=== PATIENT | male | born 1940 | race Caucasian/White ===

== ENCOUNTER 2016-09-17 14:28 | Outpatient (CLI) | payer MEDICARE, OTHER | END 2016-09-17 14:29 | disposition home or self-care (01) | DX: I48.91 Unspecified atrial fibrillation (principal); Z79.01 Long term (current) use of anticoagulants ==

== ENCOUNTER 2016-10-16 15:12 | Outpatient (CLI) | payer MEDICARE, OTHER | END 2016-10-16 15:13 | disposition home or self-care (01) | DX: I48.91 Unspecified atrial fibrillation (principal); Z79.01 Long term (current) use of anticoagulants ==

== ENCOUNTER 2016-10-24 08:45 | Outpatient (CLI) | payer MEDICARE, OTHER | END 2016-10-24 08:46 | disposition home or self-care (01) | DX: I48.91 Unspecified atrial fibrillation (principal); C61 Malignant neoplasm of prostate; Z79.899 Other long term (current) drug therapy ==

== ENCOUNTER 2016-11-05 13:27 | Outpatient (CLI) | payer MEDICARE, OTHER | END 2016-11-05 13:28 | disposition home or self-care (01) | DX: I48.91 Unspecified atrial fibrillation (principal); Z79.01 Long term (current) use of anticoagulants ==

== ENCOUNTER 2016-12-30 13:25 | Outpatient (CLI) | payer MEDICARE, OTHER | END 2016-12-30 13:26 | disposition home or self-care (01) | DX: I48.91 Unspecified atrial fibrillation (principal); Z79.01 Long term (current) use of anticoagulants ==

== ENCOUNTER 2017-01-14 14:52 | Outpatient (CLI) | payer MEDICARE, OTHER | END 2017-01-14 14:53 | disposition home or self-care (01) | DX: I48.91 Unspecified atrial fibrillation (principal); Z79.01 Long term (current) use of anticoagulants ==

== ENCOUNTER 2017-02-04 10:50 | Outpatient (CLI) | payer MEDICARE, OTHER | END 2017-02-04 10:51 | disposition home or self-care (01) | LOC: LAB 10:50 | PROVIDERS: ATTEND Internal Medicine | DX: I48.91 Unspecified atrial fibrillation (principal) | CPT/HCPCS: 85610 ==

== ENCOUNTER 2017-03-17 15:31 | Outpatient (CLI) | payer MEDICARE, OTHER | END 2017-03-17 15:32 | disposition home or self-care (01) | LOC: LAB 15:31 | PROVIDERS: ATTEND Internal Medicine | DX: I48.91 Unspecified atrial fibrillation (principal) | CPT/HCPCS: 85610 ==

== ENCOUNTER 2017-04-04 14:38 | Outpatient (CLI) | payer MEDICARE, OTHER | END 2017-04-04 14:39 | disposition home or self-care (01) | LOC: LAB 14:38 | PROVIDERS: ATTEND Internal Medicine | DX: I48.91 Unspecified atrial fibrillation (principal) | CPT/HCPCS: 85610 ==

== ENCOUNTER 2017-06-17 14:34 | Outpatient (CLI) | payer MEDICARE, OTHER | END 2017-06-17 14:35 | disposition home or self-care (01) | LOC: LAB 14:34 | PROVIDERS: ATTEND Internal Medicine | DX: I48.91 Unspecified atrial fibrillation (principal); Z79.01 Long term (current) use of anticoagulants | CPT/HCPCS: 85610 ==

== ENCOUNTER 2017-07-14 10:29 | Outpatient (CLI) | payer MEDICARE, OTHER | END 2017-07-14 10:30 | disposition home or self-care (01) | LOC: LAB 10:29 | PROVIDERS: ATTEND Internal Medicine | DX: Z53.9 Procedure and treatment not carried out, unspecified reason (principal) ==

== ENCOUNTER 2017-07-14 13:49 | Outpatient (CLI) | payer MEDICARE, OTHER | END 2017-07-14 13:50 | disposition home or self-care (01) | LOC: LAB 13:49 | PROVIDERS: ATTEND Internal Medicine | DX: I48.91 Unspecified atrial fibrillation (principal); Z79.01 Long term (current) use of anticoagulants | CPT/HCPCS: 85610 ==

== ENCOUNTER 2017-08-11 15:32 | Outpatient (CLI) | payer MEDICARE, OTHER | END 2017-08-11 15:33 | disposition home or self-care (01) | LOC: LAB 15:32 | PROVIDERS: ATTEND Internal Medicine | DX: I48.91 Unspecified atrial fibrillation (principal); Z79.01 Long term (current) use of anticoagulants | CPT/HCPCS: 85610 ==

== ENCOUNTER 2017-08-27 14:33 | Outpatient (CLI) | payer MEDICARE, OTHER | END 2017-08-27 14:34 | disposition home or self-care (01) | LOC: LAB 14:33 | PROVIDERS: ATTEND Internal Medicine | DX: I48.91 Unspecified atrial fibrillation (principal); Z79.01 Long term (current) use of anticoagulants | CPT/HCPCS: 85610 ==

== ENCOUNTER 2017-09-11 14:37 | Outpatient (CLI) | payer MEDICARE, OTHER | END 2017-09-11 14:38 | disposition home or self-care (01) | LOC: LAB 14:37 | PROVIDERS: ATTEND Internal Medicine | DX: I48.91 Unspecified atrial fibrillation (principal); Z79.01 Long term (current) use of anticoagulants | CPT/HCPCS: 85610 ==

== ENCOUNTER 2017-09-25 14:07 | Outpatient (CLI) | payer MEDICARE, OTHER | END 2017-09-25 14:08 | disposition home or self-care (01) | LOC: LAB 14:07 | PROVIDERS: ATTEND Internal Medicine | DX: I48.91 Unspecified atrial fibrillation (principal); Z79.01 Long term (current) use of anticoagulants | CPT/HCPCS: 85610 ==

== ENCOUNTER 2017-10-06 13:41 | Outpatient (CLI) | payer MEDICARE, OTHER | END 2017-10-06 13:42 | disposition home or self-care (01) | LOC: LAB 13:41 | PROVIDERS: ATTEND Internal Medicine | DX: I48.91 Unspecified atrial fibrillation (principal); Z79.01 Long term (current) use of anticoagulants | CPT/HCPCS: 85610 ==

== ENCOUNTER 2017-10-27 14:07 | Outpatient (CLI) | payer MEDICARE, OTHER | END 2017-10-27 14:08 | disposition home or self-care (01) | LOC: LAB 14:07 | PROVIDERS: ATTEND Internal Medicine | DX: I48.91 Unspecified atrial fibrillation (principal); Z79.01 Long term (current) use of anticoagulants | CPT/HCPCS: 85610 ==

== ENCOUNTER 2017-11-03 07:29 | Outpatient (CLI) | payer MEDICARE, OTHER ==
[2017-11-03 08:26] LABS: BASOPHILS % (AUTO) 0.7 %; EOSINOPHILS # (AUTO) 0.2 10^3/uL (0.0-0.7); EOSINOPHILS % (AUTO) 2.6 %; HGB - HEMOGLOBIN 14.2 g/dL (14.0-18.0); LYMPHOCYTES # (AUTO) 1.5 10^3/uL (1.5-3.5); LYMPHOCYTES % (AUTO) 21.6 %; MEAN CORPUSCULAR HEMOGLOBIN 30.4 pg (27.0-31.0); MEAN CORPUSCULAR HGB CONC 32.9 g/dL (32.0-36.0); MEAN CORPUSCULAR VOLUME 92.4 fL (80.0-94.0); MEAN PLATELET VOLUME 8.7 fL (7.4-11.4); MONOCYTES # (AUTO) 0.6 10^3/uL (0.0-1.0); MONOCYTES % (AUTO) 8.7 %; NEUTROPHILS # (AUTO) 4.7 10^3/uL (1.5-6.6); NEUTROPHILS % (AUTO) 66.4 %; PLT - PLATELET COUNT 222 10^3/uL (130-450); RED BLOOD COUNT 4.66 10^6/uL (4.70-6.10); RED CELL DISTRIBUTION WIDTH 14.2 % (12.0-15.0); WHITE BLOOD COUNT 7.1 x10^3/uL (4.8-10.8)
[2017-11-03 08:44] LABS: ALBUMIN 3.9 g/dL (3.2-5.5); ALBUMIN/GLOBULIN RATIO 1.1 (1.0-2.2); BILIRUBIN,TOTAL 0.5 mg/dL (0.2-1.0); CALCIUM 8.9 mg/dL (8.5-10.3); CREATININE 1.1 mg/dL (0.6-1.2); TOTAL PROTEIN 7.3 g/dL (6.7-8.2)
[2017-11-03 08:48] LABS: HB2 TOTAL 15.4 g/dL; HEMOGLOBIN A1C 0.75 g/dL; HEMOGLOBIN A1C % 6.6 % (4.6-6.2)
== END 2017-11-03 07:30 | disposition home or self-care (01) ==
LOC: LAB 07:29
PROVIDERS: ATTEND Internal Medicine
DX: R73.9 Hyperglycemia, unspecified (principal); D64.9 Anemia, unspecified; I11.0 Hypertensive heart disease with heart failure; I50.9 Heart failure, unspecified; I48.91 Unspecified atrial fibrillation
CPT/HCPCS: 36415; 80053; 83036; 85025

== ENCOUNTER 2017-11-17 14:54 | Outpatient (CLI) | payer MEDICARE, OTHER | END 2017-11-17 14:55 | disposition home or self-care (01) | LOC: LAB 14:54 | PROVIDERS: ATTEND Internal Medicine | DX: Z79.01 Long term (current) use of anticoagulants (principal); I48.91 Unspecified atrial fibrillation | CPT/HCPCS: 85610 ==

== ENCOUNTER 2017-12-03 14:39 | Outpatient (CLI) | payer MEDICARE, OTHER | END 2017-12-03 14:40 | disposition home or self-care (01) | LOC: LAB 14:39 | PROVIDERS: ATTEND Internal Medicine | DX: I48.91 Unspecified atrial fibrillation (principal); Z79.01 Long term (current) use of anticoagulants | CPT/HCPCS: 85610 ==

== ENCOUNTER 2017-12-20 14:30 | Outpatient (CLI) | payer MEDICARE, OTHER | END 2017-12-20 14:31 | disposition home or self-care (01) | LOC: LAB 14:30 | PROVIDERS: ATTEND Internal Medicine | DX: I48.91 Unspecified atrial fibrillation (principal); Z79.01 Long term (current) use of anticoagulants | CPT/HCPCS: 85610 ==

== ENCOUNTER 2018-01-05 13:43 | Outpatient (CLI) | payer MEDICARE, OTHER | END 2018-01-05 13:44 | disposition home or self-care (01) | LOC: LAB 13:43 | PROVIDERS: ATTEND Internal Medicine | DX: I48.91 Unspecified atrial fibrillation (principal); Z79.01 Long term (current) use of anticoagulants | CPT/HCPCS: 85610 ==

== ENCOUNTER 2018-01-19 10:09 | Outpatient (CLI) | payer MEDICARE, OTHER ==
[2018-01-19 10:31] LABS: INR 2.6 (0.8-1.2); PT - PROTHROMBIN TIME 28.7 secs (9.9-12.6)
== END 2018-01-19 10:10 | disposition home or self-care (01) ==
LOC: LAB 10:09
PROVIDERS: ATTEND Internal Medicine
DX: I48.91 Unspecified atrial fibrillation (principal); Z79.01 Long term (current) use of anticoagulants
CPT/HCPCS: 85610

== ENCOUNTER 2018-02-18 13:39 | Outpatient (CLI) | payer MEDICARE, OTHER | END 2018-02-18 13:40 | disposition home or self-care (01) | LOC: LAB 13:39 | PROVIDERS: ATTEND Internal Medicine | DX: I48.91 Unspecified atrial fibrillation (principal); Z79.01 Long term (current) use of anticoagulants | CPT/HCPCS: 85610 ==

== ENCOUNTER 2018-04-14 11:05 | Outpatient (CLI) | payer MEDICARE, OTHER ==
[2018-04-14 12:11] LABS: INR 2.3 (0.8-1.2)
== END 2018-04-14 11:06 | disposition home or self-care (01) ==
LOC: LAB 11:05
PROVIDERS: ATTEND Internal Medicine
DX: I48.91 Unspecified atrial fibrillation (principal); Z79.01 Long term (current) use of anticoagulants
CPT/HCPCS: 36415; 85610

== ENCOUNTER 2018-05-11 13:53 | Outpatient (CLI) | payer MEDICARE, OTHER | END 2018-05-11 13:54 | disposition home or self-care (01) | LOC: LAB 13:53 | PROVIDERS: ATTEND Internal Medicine | DX: I48.91 Unspecified atrial fibrillation (principal); Z79.01 Long term (current) use of anticoagulants | CPT/HCPCS: 85610 ==

== ENCOUNTER 2018-05-26 14:59 | Outpatient (CLI) | payer MEDICARE, OTHER | END 2018-05-26 15:00 | disposition home or self-care (01) | LOC: LAB 14:59 | PROVIDERS: ATTEND Internal Medicine | DX: I48.91 Unspecified atrial fibrillation (principal); Z79.01 Long term (current) use of anticoagulants | CPT/HCPCS: 85610 ==

== ENCOUNTER 2018-06-25 13:59 | Outpatient (CLI) | payer MEDICARE, OTHER | END 2018-06-25 14:00 | disposition home or self-care (01) | LOC: LAB 13:59 | PROVIDERS: ATTEND Internal Medicine | DX: I48.91 Unspecified atrial fibrillation (principal); Z79.01 Long term (current) use of anticoagulants | CPT/HCPCS: 85610 ==

== ENCOUNTER 2018-07-10 13:18 | Outpatient (CLI) | payer MEDICARE, OTHER ==
[2018-07-10 13:37] LABS: BASOPHILS # (AUTO) 0.1 10^3/uL (0.0-0.1); EOSINOPHILS # (AUTO) 0.2 10^3/uL (0.0-0.7); EOSINOPHILS % (AUTO) 2.4 %; HGB - HEMOGLOBIN 13.8 g/dL (14.0-18.0); LYMPHOCYTES # (AUTO) 1.4 10^3/uL (1.5-3.5); LYMPHOCYTES % (AUTO) 18.5 %; MEAN CORPUSCULAR HGB CONC 33.6 g/dL (32.0-36.0); MEAN CORPUSCULAR VOLUME 89.4 fL (80.0-94.0); MEAN PLATELET VOLUME 8.1 fL (7.4-11.4); MONOCYTES # (AUTO) 0.8 10^3/uL (0.0-1.0); MONOCYTES % (AUTO) 10.6 %; NEUTROPHILS # (AUTO) 4.9 10^3/uL (1.5-6.6); NEUTROPHILS % (AUTO) 67.5 %; PLT - PLATELET COUNT 210 10^3/uL (130-450); RED CELL DISTRIBUTION WIDTH 15.4 % (12.0-15.0); WHITE BLOOD COUNT 7.3 x10^3/uL (4.8-10.8)
[2018-07-10 13:42] LABS: INR 1.7 (0.8-1.2); PT - PROTHROMBIN TIME 18.9 secs (9.9-12.6)
[2018-07-10 13:52] LABS: ALBUMIN 4.1 g/dL (3.2-5.5); ALBUMIN/GLOBULIN RATIO 1.3 (1.0-2.2); BILIRUBIN,TOTAL 0.8 mg/dL (0.2-1.0); CALCIUM 9.4 mg/dL (8.5-10.3); CREATININE 0.9 mg/dL (0.6-1.2); TOTAL PROTEIN 7.2 g/dL (6.7-8.2)
[2018-07-10 14:27] LABS: HB2 TOTAL 14.7 g/dL; HEMOGLOBIN A1C 0.77 g/dL; HEMOGLOBIN A1C % 6.9 % (4.6-6.2)
[2018-07-10 19:19] LABS: BILIRUBIN,URINE NEGATIVE (NEGATIVE); GLUCOSE, URINE (UA) NEGATIVE (NEGATIVE); KETONES,URINE (UA) NEGATIVE (NEGATIVE); LEUKOCYTE ESTERASE, URINE NEGATIVE (NEGATIVE); NITRITE,URINE NEGATIVE (NEGATIVE); OCCULT BLOOD,URINE NEGATIVE (NEGATIVE); PROTEIN,URINE NEGATIVE (NEGATIVE); UROBILINOGEN,URINE 0.2 (NORMAL) E.U./dL (NORMAL)
[2018-07-10 19:26] LABS: CLARITY,URINE CLEAR (CLEAR)
[2018-07-10 19:27] LABS: BACTERIA,URINE Rare /HPF (None Seen); MUCUS,URINE Few Strands; RBC,URINE 0-5 /HPF (0-5); SQUAMOUS EPITHELIAL CELL,UR MANY Squamous (<= Few)
== END 2018-07-10 13:19 | disposition home or self-care (01) ==
LOC: LAB 13:18
PROVIDERS: ATTEND Internal Medicine
DX: R73.9 Hyperglycemia, unspecified (principal); R30.0 Dysuria; Z79.01 Long term (current) use of anticoagulants; D64.9 Anemia, unspecified; I50.9 Heart failure, unspecified; I48.91 Unspecified atrial fibrillation; F03.90 Unspecified dementia, unspecified severity, without behavioral disturbance, psychotic disturbance, mood disturbance, and anxiety
CPT/HCPCS: 36415; 80053; 81001; 83036; 85025; 85610; 87086

== ENCOUNTER 2018-07-21 12:46 | Outpatient (CLI) | payer MEDICARE, OTHER | END 2018-07-21 12:47 | disposition home or self-care (01) | LOC: LAB 12:46 | PROVIDERS: ATTEND Internal Medicine | DX: I48.91 Unspecified atrial fibrillation (principal); Z79.01 Long term (current) use of anticoagulants | CPT/HCPCS: 85610 ==

== ENCOUNTER 2018-08-11 14:57 | Outpatient (CLI) | payer MEDICARE, OTHER | END 2018-08-11 14:58 | disposition home or self-care (01) | LOC: LAB 14:57 | PROVIDERS: ATTEND Internal Medicine | DX: I48.91 Unspecified atrial fibrillation (principal); Z79.01 Long term (current) use of anticoagulants | CPT/HCPCS: 85610 ==

== ENCOUNTER 2018-08-17 13:45 | Outpatient (CLI) | payer MEDICARE, OTHER | END 2018-08-17 13:46 | disposition home or self-care (01) | LOC: LAB 13:45 | PROVIDERS: ATTEND Internal Medicine | DX: I48.91 Unspecified atrial fibrillation (principal); Z79.01 Long term (current) use of anticoagulants | CPT/HCPCS: 85610 ==

== ENCOUNTER 2018-09-10 15:19 | Outpatient (CLI) | payer MEDICARE, OTHER | END 2018-09-10 15:20 | disposition home or self-care (01) | LOC: LAB 15:19 | PROVIDERS: ATTEND Internal Medicine | DX: I48.91 Unspecified atrial fibrillation (principal); Z79.01 Long term (current) use of anticoagulants | CPT/HCPCS: 85610 ==

== ENCOUNTER 2018-10-13 10:39 | Outpatient (CLI) | payer MEDICARE, OTHER | END 2018-10-13 10:40 | disposition critical access hospital (66) | LOC: EMS 10:39 | PROVIDERS: ATTEND Surgery | DX: R53.1 Weakness (principal); W19.XXXA Unspecified fall, initial encounter; Y92.002 Bathroom of unspecified non-institutional (private) residence as the place of occurrence of the external cause | CPT/HCPCS: A0425; A0429 ==

== ENCOUNTER 2018-10-13 10:57 | Inpatient (IN) | payer MEDICARE, OTHER ==
--- NOTE | 2018-10-13 11:12 | ED Physician Documentation ---
History of Present Illness - Stated complaint Stated Complaint: FALL - Chief complaint Chief Complaint: General - History obtained from History obtained from: Patient, EMS - History of Present Illness Timing: Last night - Additonal information Additional information: 78-year-old male with a history of dementia has had a fall in his bathroom sometime in the middle of the night and he was noted to be on the floor the bathroom at least from 5 to 10:00 in the morning this morning. His did hear him snoring in the bathroom and later went in to find him face down in the bathroom. He was unable to get up and medics were called to the scene. He does have some pressure indications on both of his knees with erythema and he is confused at baseline but is able to converse. He denies any recent illness. Review of Systems Unable to obtain: Dementia, Other (negative ROS is confirmed by the patient's .) Constitutional: denies: Fever Eyes: denies: Decreased vision Ears: denies: Ear pain Nose: denies: Congestion Throat: denies: Sore throat Cardiac: denies: Chest pain / pressure, Palpitations Respiratory: denies: Dyspnea, Cough GI: denies: Abdominal Pain, Nausea, Vomiting : denies: Dysuria, Frequency PD PAST MEDICAL HISTORY - Past Medical History Cardiovascular: Congestive heart failure Respiratory: None Endocrine/Autoimmune: None GI: None : None HEENT: None Psych: None Musculoskeletal: None Derm: None - Past Surgical History Past Surgical History: Yes Ortho: Hip replacement - Present Medications Home Medications: Ambulatory Orders Medication Instructions Recorded Confirmed Metoprolol Tartrate 100 mg PO DAILY 10/01/16 07/21/18 Warfarin [Coumadin] 7.5 mg PO DAILY 10/01/16 07/21/18 Sertraline HCl [Zoloft] 100 mg ORAL DAILY 10/13/18 - Allergies Allergies/Adverse Reactions: Allergies Allergy/AdvReac Type Severity Reaction Status Date / Time adhesive Allergy Rash Verified 10/13/18 11:10 - Social History Does the pt smoke?: No Smoking Status: Never smoker Does the pt drink ETOH?: Yes Does the pt have substance abuse?: No - Immunizations Immunizations are current?: Yes - POLST Patient has POLST: No PD ED PE NORMAL - Vitals Vital signs reviewed: Yes (hypertensive ) - General General: No acute distress, Well developed/nourished, Other (confused and with delay in execution of motor commands ) - HEENT HEENT: Atraumatic, PERRL, EOMI, Other (dry mucous membranes ) - Neck Neck: Supple, no meningeal sign, No bony TTP - Cardiac Cardiac: No murmur, Other (irregularly irregular ) - Respiratory Respiratory: No respiratory distress, Clear bilaterally - Abdomen Abdomen: Soft, Non tender, Other (obese) - Back Back: No CVA TTP, No spinal TTP - Derm Derm: Normal color, Warm and dry, No rash - Extremities Extremities: No deformity, Other (trace edema bilaterally ) - Neuro Neuro: rock mason 2-12 intact, No motor deficit, No sensory deficit, Normal speech Eye Opening: Spontaneous Motor: Obeys Commands Verbal: Confused GCS Score: 14 - Psych Psych: Normal mood, Normal affect Results - Vitals Vitals: Vital Signs - 24 hr 10/13/18 10/13/18 11:02 13:08 Temperature 36.4 C L Heart Rate 71 57 L Respiratory 16 16 Rate Blood Pressure 136/101 H 119/74 O2 Saturation 97 96 Oxygen O2 Source Room air - EKG (time done) 1308 Rate: Rate (enter#) (110) Rhythm: Atrial fibrillation QRS: Poor R wave progression Ischemia: Q waves Compare to prior EKG: Old EKG unavailable Computer interpretation: Agree with computer - Labs Labs: Laboratory Tests 10/13/18 10/13/18 10/13/18 11:56 11:56 11:56 WBC 13.6 H RBC 4.45 L Hgb 13.4 L Hct 40.4 L MCV 90.6 MCH 30.0 MCHC 33.1 RDW 14.6 Plt Count 200 MPV 8.3 Neut # (Auto) 12.0 H Lymph # (Auto) 0.5 L [place] # (Auto) 1.0 Eos # (Auto) 0.0 Baso # (Auto) 0.0 Absolute Nucleated RBC 0.00 Nucleated RBC % 0.0 PT 21.4 H INR 1.9 H Sodium 137 Potassium 4.7 Chloride 101 Carbon Dioxide 25 Anion Gap 11.0 BUN 25 H Creatinine 1.2 Estimated GFR (MDRD) 58 L Glucose 178 H Lactic Acid Calcium 8.9 Total Bilirubin 1.0 AST 361 H ALT 87 H Alkaline Phosphatase 58 Total Creatine Kinase 83650 H* CK-MB (CK-2) Troponin I B-Natriuretic Peptide Total Protein 7.2 Albumin 3.7 Globulin 3.5 Albumin/Globulin Ratio 1.1 Lipase 27 10/13/18 10/13/18 10/13/18 11:56 11:56 11:56 WBC RBC Hgb Hct MCV MCH MCHC RDW Plt Count MPV Neut # (Auto) Lymph # (Auto) [place] # (Auto) Eos # (Auto) Baso # (Auto) Absolute Nucleated RBC Nucleated RBC % PT INR Sodium Potassium Chloride Carbon Dioxide Anion Gap BUN Creatinine Estimated GFR (MDRD) Glucose Lactic Acid 2.3 H Calcium Total Bilirubin AST ALT Alkaline Phosphatase Total Creatine Kinase CK-MB (CK-2) 271.0 H Troponin I 9.28 H* B-Natriuretic Peptide 472 H Total Protein Albumin Globulin Albumin/Globulin Ratio Lipase - Rads (name of study) CT head without Radiology: Prelim report reviewed (Impression: No acute intracranial abnormality.), EMP read indepedently, See rad report Procedures - IVC sono (time) 1107 Bedside IVC sono: IVC measures (cm) (1.5), IVC collapsed c insp (cm) (complete), Dehydration (minimal est <500ml) PD MEDICAL DECISION MAKING - ED course Complexity details: reviewed old records (f), reviewed results, re-evaluated patient, considered differential, d/w patient ED course: 78-year-old male with advanced dementia has collapsed in his bathroom sometime last night between the hours of 8:30 PM and 5 AM. He was on the ground for an extended period of time as evidenced by his elevated CPK and in addition he has elevated troponin. I discussed the case with the patient's and she indicates that transfer to another facility with a boat designer is not desired. She would like the patient admitted here for care. Departure - Departure Disposition: 66 [facility] DC/Xfer Clinical Impression: NSTEMI (non-ST elevated myocardial infarction) Rhabdomyolysis Qualifiers: Rhabdomyolysis type: traumatic Encounter type: initial encounter Qualified Code(s): T79.6XXA - Traumatic ischemia of muscle, initial encounter Condition: Fair
--- NOTE | 2018-10-13 12:00 | CT Report ---
Reason: fall coumadin confusion Procedure Date: 10/13/2018 Accession Number: [id number] / [id number] Procedure: CT - Head W/O CPT Code: FULL RESULT: EXAM: CT HEAD EXAM DATE: 10/13/2018 11:36 AM. CLINICAL HISTORY: Fall, Coumadin, confusion. COMPARISON: HEAD W/O 08/12/2013 10:11 AM. TECHNIQUE: Multiaxial CT images were obtained from the foramen magnum to the vertex. Reformats: Sagittal and coronal. IV contrast: None. In accordance with CT protocol optimization, one or more of the following dose reduction techniques were utilized for this exam: automated exposure control, adjustment of mA and/or KV based on patient size, or use of iterative reconstructive technique. FINDINGS: Parenchyma: No intraparenchymal hemorrhage. No evidence of mass, midline shift. Seymour-white differentiation is distinct. Extraaxial Spaces: Normal for age. No subdural or epidural collections identified. Ventricles: Normal in size and position. Sinuses and Orbits: Imaged paranasal sinuses, orbits, and mastoids show no significant abnormality. Bones: No evidence of fracture or calvarial defect. Other: None. IMPRESSION: No acute intracranial abnormality. RADIA
[2018-10-13 12:07] LABS: BASOPHILS % (AUTO) 0.1 %; HGB - HEMOGLOBIN 13.4 g/dL (14.0-18.0); LYMPHOCYTES # (AUTO) 0.5 10^3/uL (1.5-3.5); LYMPHOCYTES % (AUTO) 3.8 %; MEAN CORPUSCULAR HGB CONC 33.1 g/dL (32.0-36.0); MEAN CORPUSCULAR VOLUME 90.6 fL (80.0-94.0); MEAN PLATELET VOLUME 8.3 fL (7.4-11.4); MONOCYTES % (AUTO) 7.3 %; NEUTROPHILS % (AUTO) 88.8 %; PLT - PLATELET COUNT 200 10^3/uL (130-450); RED BLOOD COUNT 4.45 10^6/uL (4.70-6.10); RED CELL DISTRIBUTION WIDTH 14.6 % (12.0-15.0); WHITE BLOOD COUNT 13.6 x10^3/uL (4.8-10.8)
[2018-10-13 12:22] LABS: INR 1.9 (0.8-1.2); PT - PROTHROMBIN TIME 21.4 secs (9.9-12.6)
[2018-10-13 12:25] LABS: TROPONIN I 9.28 ng/mL (<0.49)
[2018-10-13 12:39] LABS: ALBUMIN 3.7 g/dL (3.2-5.5); ALBUMIN/GLOBULIN RATIO 1.1 (1.0-2.2); CALCIUM 8.9 mg/dL (8.5-10.3); CREATININE 1.2 mg/dL (0.6-1.2); TOTAL PROTEIN 7.2 g/dL (6.7-8.2)
[2018-10-13] MEDS ORDERED: SODIUM CHLORIDE 0.9% 1,000 ML IV ONE (13:01)
[2018-10-13] MEDS ORDERED: SODIUM CHLORIDE FLUSH 0.9% 10 ML SYRINGE IVP PRN (13:46)
--- NOTE | 2018-10-13 14:10 | XRAY Report ---
Reason: chest pain Procedure Date: 10/13/2018 Accession Number: [id number] / [id number] Procedure: XR - Chest 1 View X-Ray CPT Code: 54098 FULL RESULT: EXAM: CHEST RADIOGRAPHY EXAM DATE: 10/13/2018 01:43 PM. CLINICAL HISTORY: Chest pain. COMPARISON: None. TECHNIQUE: 1 view. FINDINGS: Examination is limited by semiupright single view portable AP technique. Lungs/Pleura: The aerated left upper lung and right lung are clear with a trace amount of fluid seen in the horizontal fissure. There is no large pleural effusion or pneumothorax. Mediastinum: Cardiomegaly with opacification of the lower portion of the left lung. Other: None. IMPRESSION: Limited evaluation with cardiomegaly. RADIA
--- NOTE | 2018-10-13 14:22 | HISTORY & PHYSICAL EXAMINATION ---
Chief Complaint - Chief Complaint Chief Complaint: found down History of Present Illness - Admitted From Admitted From:: ED - History Obtained From Records Reviewed: yes History obtained from: chart review, patient's Exam Limitations: AMS, dementia - History of Present Illness HPI Comment/Other: Edmar Elliott is a 78-year old male with a past medical history of Alzheimer's dementia, falls, atrial fibrillation on coumadin, CHF, obesity, RICHARD and depression. He is very confused on admission, so his , Magalis answered all questions asked for this H & P document. He sleeps in his own room at home and when Magalis checked on him this morning, she called to him and he replied, "I am just fine in here". Within one hour after that, she went into his room, and found him wedged between the wall and toilet in the bathroom. He was not able to be dislodged even after Magalis had a few male neighbors come to assist. EMS came and the patient was estimated to have been on the floor any where from 8-10 hours. After arriving in the ED imaging of his head and chest were normal, an IVC measurement showed a 1.5L deficit. Labs showed an elevated troponin of 9.48[place] [address], a BNP of 472, an elevated lactic acid of 2.3, an INR of 1.9, an elevated WBC count of 13.6, a low H/H of 13.4/40.4, elevated LFTs, and no other lab abnormalities. On exam, he was agitated, could not follow commands, was disorientated, and was not able to elaborate on his history. His Magalis states that she does not believe he has been sick lately, has not had a new cough, rashes, or other complaints. She does admit that he has been more confused lately, has had more falls, and has had more of a sudden decline. He will be admitted to inpatient. History - Past Medical History Cardiovascular: reports: Congestive heart failure, Hypertension, Peripheral Vascular Disease, Atrial flutter, Murmur, Arrhythmia Respiratory: reports: Asthma, Sleep apnea Neuro: reports: Alzhiemer's, Dementia, Peripheral neuropathy Endocrine/Autoimmune: reports: None GI: reports: GERD : reports: Benign prostate hypertrophy, Nocturia, Frequency HEENT: reports: Chronic vision loss, Chronic hearing loss Psych: reports: Depression Musculoskeletal: reports: Osteoarthritis, Fatigue Derm: reports: None MRSA Hx?: No - Past Surgical History Ortho: reports: Hip replacement - Family & Social History Family History: Mother: , Alzheimer's Disease, Father: , Cancer, Sister: , Brother: Family History Comment/Other: His mother had Alzheimer's disease, his father had prostate CA, his brother had lung CA and his sister has been astranged with an unknown medical history. Living arrangement: At home Living Situation: With spouse/s.o. 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 He was born in [facility], met his of 53 years, and had 2 children. He still lives at home with his , Magalis but has been home bound lately since it is too difficult for Magalis to move him physically. His denies tobacco abuse, alcoholism, or substance abuse. He has a POLST on file that states DNR. - Substance History Use: Uses substance without health or social issues: NONE Abuse: Recurrent use of substance despite neg consequences: NONE Dependence: Experiences withdrawal or developed tolerances: NONE - POLST Patient has POLST: Yes POLST Status: DNR Meds/Allgy - Home Medications Home Medications: Ambulatory Orders Medication Instructions Recorded Confirmed Warfarin [Coumadin] 5 - 7.5 mg PO DAILY 10/01/16 10/13/18 Metoprolol Succinate 100 mg PO DAILY 10/13/18 10/13/18 Sertraline HCl [Zoloft] 100 mg ORAL DAILY 10/13/18 10/13/18 - Allergies Allergies/Adverse Reactions: Allergies Allergy/AdvReac Type Severity Reaction Status Date / Time adhesive Allergy Rash Verified 10/13/18 11:10 Review of Systems - Constitutional Constitutional: reports: Fatigue, Weakness, Poor appetite - Eyes Eyes: reports: Vision loss - Ears, Nose & Throat Ears, Nose & Throat: reports: Hearing loss, Postnasal drainage - Respiratory Respiratory: reports: Cough - Gastrointestinal Gastrointestinal: reports: Abdominal distention, Reflux/heartburn - Genitourinary Genitourinary: reports: Dysuria, Frequency, Nocturia - Musculoskeletal Musculoskeletal: reports: Limited range of motion, Muscle weakness, Joint swe lling - Integumentary Integumentary: reports: Dryness, Pigment changes - Neurological Neurological: reports: General weakness, Memory problems, Pre-existing deficit, Abnormal gait, Incoordination - Hematologic/Lymphatic Hematologic/Lymphatic: reports: Anemia, Recurrent infections - All Other Systems All Other Systems: reports: Reviewed and negative Prior Level of Functionality: Progressive weakness, more frequent falls, was using a 4-wheeled walker with less walking lately. Exam - Vital Signs Reviewed Vital Signs: Yes Vital Signs: Vital Signs x48h Temp Pulse Resp BP Pulse Ox 10/13/18 14:11 105 H 20 167/86 H 99 10/13/18 13:08 57 L 16 119/74 96 10/13/18 11:02 36.4 C L 71 16 136/101 H 97 - Physical Exam General Appearance: positive: Alert, Mild distress, Lethargic Eyes Bilateral: positive: PERRL ENT: positive: Pharynx nml, Dry mucous membranes Neck: positive: No JVD, Trachea midline Respiratory: positive: Chest non-tender, Rhonchi Cardiovascular: positive: No gallop, Irregularly irregular, Systolic murmur Peripheral Pulses: positive: 1+ Abdomen: positive: Non-tender, Nml bowel sounds, Hepatomegaly, Other (obese, soft) Back: positive: Nml inspection Skin: positive: No rash, Warm, Dry Extremities: positive: Non-tender, Pedal edema, Joint swelling. negative: Nml appearance (chronic discoloration BLEs) Neurologic/Psychiatric: positive: Disoriented to place, Disoriented to time, Weakness, Sensory loss, Depressed mood/affect Reflexes: Bicep (R): 2+, Bicep (L): 2+ Sepsis Event Note (H) - Evaluation Current Stage of Sepsis: Ruled out Conclusion/Plan - Problem List (1) Rhabdomyolysis Conclusion/Plan: The patient had an elevated total creatine kinase of 16,820, which matches the story from the as he is suspected as lying on the floor for 8-10 hours overnight. Plan: Generous NS IV @ 250ml /hour. Re-check CK. Qualifiers: Rhabdomyolysis type: traumatic Encounter type: initial encounter Qualified Code(s): T79.6XXA - Traumatic ischemia of muscle, initial encounter (2) NSTEMI (non-ST elevated myocardial infarction) Conclusion/Plan: The patient's states that he had never had a heart attack previously and has a history of hypertension and atrial fibrillation. I suspect the elevated troponin of 9.28 was caused by the stress of his fall on his cardiovascular system, exacerbated by hypoxia from hypoventilation. EKG shows atrial fibrillation without ST elevation. Plan: continue with serial troponins, obtain a new EKG in the AM. (3) Fall Conclusion/Plan: The patient's states that he has been falling more in the past few weeks and is able to get on his hands and knees, then use his arms to pull himself back to a standing position. She does not believe this is due to syncope in which he looses consciousness, rather, his legs just give out. Plan: PT prior to discharge. Qualifiers: Encounter type: subsequent encounter Qualified Code(s): W19.XXXD - Unspecified fall, subsequent encounter (4) Alzheimer's dementia with behavioral disturbance Conclusion/Plan: The patient's , Magalis states that he was diagnosed about 10 years ago, but in the past 1 month there has been a noticeable difference in his behavior. Luckily, she believes that he can still recognize her each day. He has been acting strange while eating, when previously he was a great eater in which he holds food in his mouth for a prolonged time before swallowing. She states it is like he forgets what he was doing, which is not his character. She states that he has had more falls and his gait is shuffled lately. She denies any coughing noticed after swallowing. Plan: Continue to treat acute illness, Palliative care ordered. Qualifiers: Alzheimer's disease onset: early-onset Qualified Code(s): G30.0 - Alzheimer's disease with early onset; F02.81 - Dementia in other diseases classified elsewhere with behavioral disturbance (5) Obesity (BMI 30-39.9) Conclusion/Plan: The patient has been overweight for several years and has been falling lately. He consequently has RICHARD, but this is not officially diagnosed with a sleep study. His states he is a very loud snorer, and she has to sleep in a different room. He appears to have a very large neck circumference, although I have not measured it. Plan: Continue care, fall precautions. (6) Chronic atrial fibrillation Conclusion/Plan: The patient has had a-fib for greater than 10 years and is rate controlled with metoprolol, on warfarin for his atrial fib. His INR was sub-therapeutic at 1.9. His is agreeable to taking him off the anticoagulation due to the risk- benefit ratio of his falls making at risk for bleeding. Plan: Continue care, await echo, obtain EKG in the AM. Continue metoprolol, ASA. 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 Plan: Stop Warfarin, start ASA in the AM. (8) Essential hypertension Conclusion/Plan: The patient is prescribed metoprolol at home, which has been continued here. On admission his B/Ps have been elevated at 136/101. Plan: Continue meds, monitor B/P for hypotension with his NSTEMI. (9) Major depressive disorder Conclusion/Plan: The patient is prescribed sertraline at home that may be continued here. Plan: Continue med. Qualifiers: Major depression recurrence: recurrent Major depression episode severity: moderate - Lab Results Lab results reviewed: Yes Fish Bones: 10/14/18 05:10 10/14/18 05:10 - Diagnostic Imaging Results Diagnostic Imaging Results: positive: Final report reviewed Diagnostic Imaging Results Comments: EXAM: CHEST RADIOGRAPHY EXAM DATE: 10/13/2018 01:43 PM IMPRESSION: Limited evaluation with cardiomegaly. EXAM: CT HEAD EXAM DATE: 10/13/2018 11:36 AM IMPRESSION: No acute intracranial abnormality. - EKG Results EKG Interpreted Independently: Yes EKG Comparison: No prior EKG EKG Findings: A-fib without elevated ST. Core Measures - Anticipated LOS I expect patient to be DC'd or transferred within 96 hours.: Yes - DVT/VTE - Prophylaxis VTE/DVT Device ordered at admit?: Yes VTE/DVT Prophylaxis med ordered at admit?: Yes - Stroke - Rehab Assessment Rehab services assessment to be ordered?: Yes - AMI - Statin at Admit Aspirin Prescribed on Admit: Yes
[2018-10-13] MEDS ORDERED: LIDOCAINE 2% URO-JET 5 ML SYRINGE UR PRN (15:40)
[2018-10-13] MEDS: SODIUM CHLORIDE 0.9% 1,000 ML IV SCH ×3 (15:59→22:25)
[2018-10-13 17:02] LABS: GLUCOSE, URINE (UA) NEGATIVE (NEGATIVE); KETONES,URINE (UA) NEGATIVE (NEGATIVE); LEUKOCYTE ESTERASE, URINE NEGATIVE (NEGATIVE); OCCULT BLOOD,URINE LARGE (NEGATIVE); PH,URINE 6.5 PH (5.0-7.5); UROBILINOGEN,URINE 0.2 (NORMAL) E.U./dL (NORMAL)
[2018-10-13 17:17] LABS: BILIRUBIN,URINE NEGATIVE (NEGATIVE); CLARITY,URINE CLOUDY (CLEAR); ICTOTEST,URINE NEGATIVE
[2018-10-13 17:33] LABS: NITRITE,URINE POSITIVE (NEGATIVE); PROTEIN,URINE 100 mg/dL (NEGATIVE)
[2018-10-13 17:38] LABS: RBC,URINE 0-5 /HPF (0-5); SQUAMOUS EPITHELIAL CELL,UR RARE Squamous (<= Few)
[2018-10-13 17:39] LABS: AMORPHOUS SEDIMENT,UR Few /LPF; BACTERIA,URINE None Seen /HPF (None Seen); CASTS, URINE 3-5 Fine Granular /LPF; MUCUS,URINE Few Strands
[2018-10-13] MEDS: SODIUM CHLORIDE FLUSH 0.9% 10 ML SYRINGE IVP SCH ×2 (18:22→23:41)
[2018-10-13] MEDS: ENOXAPARIN 40 MG/0.4 ML SYRINGE SUBQ SCH (18:23)
[2018-10-13] MEDS: OLANZapine ODT 5 MG TABLET TL SCH (20:24)
[2018-10-14] MEDS ORDERED: ACETAMINOPHEN 325 MG TABLET PO PRN (00:29)
[2018-10-14] MEDS: SODIUM CHLORIDE 0.9% 1,000 ML IV SCH ×5 (03:15→21:27)
[2018-10-14 05:31] LABS: BASOPHILS # (AUTO) 0.1 10^3/uL (0.0-0.1); BASOPHILS % (AUTO) 0.9 %; EOSINOPHILS % (AUTO) 0.4 %; HGB - HEMOGLOBIN 12.4 g/dL (14.0-18.0); LYMPHOCYTES % (AUTO) 11.4 %; MEAN CORPUSCULAR HEMOGLOBIN 30.9 pg (27.0-31.0); MEAN CORPUSCULAR HGB CONC 33.5 g/dL (32.0-36.0); MEAN CORPUSCULAR VOLUME 92.2 fL (80.0-94.0); MEAN PLATELET VOLUME 8.5 fL (7.4-11.4); MONOCYTES # (AUTO) 0.9 10^3/uL (0.0-1.0); NEUTROPHILS # (AUTO) 6.9 10^3/uL (1.5-6.6); NEUTROPHILS % (AUTO) 77.3 %; PLT - PLATELET COUNT 168 10^3/uL (130-450); RED CELL DISTRIBUTION WIDTH 14.3 % (12.0-15.0); WHITE BLOOD COUNT 8.9 x10^3/uL (4.8-10.8)
[2018-10-14 05:39] LABS: CALCIUM 8.2 mg/dL (8.5-10.3)
[2018-10-14] MEDS: ENOXAPARIN 40 MG/0.4 ML SYRINGE SUBQ SCH (08:55)
[2018-10-14] MEDS: ASPIRIN 325 MG TABLET PO SCH (08:55)
[2018-10-14] MEDS: OLANZapine ODT 5 MG TABLET TL SCH (08:55)
[2018-10-14] MEDS: SODIUM CHLORIDE FLUSH 0.9% 10 ML SYRINGE IVP SCH ×2 (08:56→15:43)
[2018-10-14] MEDS: POLYETHYLENE GLYCOL 3350 17 GM PACKET PO SCH (08:56)
[2018-10-14] MEDS ORDERED: METOPROLOL SUCCINATE 50 MG TABLET PO SCH (09:00)
[2018-10-14] MEDS: cefTRIAXone 2 GM in SODIUM CHLORIDE 0.9% MINIBAG 100 ML IV SCH (13:07)
--- NOTE | 2018-10-14 14:56 | PROVIDER PROGRESS NOTE ---
Subjective - Prog Note Date Prog Note Date: 10/14/18 Prog Note Time: 09:00 - Subjective Pt reports feeling: No change Subjective: Edmar remains non-interactive, but is pleasant. His and daughter came for a visit later this evening and attest to him remaining profoundly confused and worry about his work of breathing. He appears mildly agitated on exam. They plan to meet with Margareth Stuart at 0930 AM tomorrow to speak about goals of care. Current Medications - Current Medications Current Medications: Active Medications: Acetaminophen (Tylenol) 650 mg PO Q4HR PRN Aspirin (Mir) 325 mg PO DAILYWM LIANET Enoxaparin Sodium (Lovenox) 40 mg SUBQ DAILY LIANET Lovenox 120mg x1 SQ for acute NC on 10/14/18 Ceftriaxone Sodium 2 gm/ (Sodium Chloride) 100 mls @ 200 mls/hr IV DAILY LIANET Sodium Chloride (Normal Saline 0.9%) 1,000 mls @ 100 mls/hr IV .Q10H LIANET Isosorbide Mononitrate (Imdur) 30 mg PO DAILY LIANET Levalbuterol HCl (Xopenex) 1.25 mg INH Q4H PRN Levalbuterol HCl (Xopenex) 1.25 mg INH Q6H LIANET Lidocaine HCl (Xylocaine Uro-Jet 2%) 2.5 ml UR Q6H PRN Metoprolol Succinate (Toprol Xl) 75 mg PO BIDWM LIANET Morphine Sulfate (Morphine (Carpuject)) 2 mg IVP Q2HR PRN Olanzapine (Zyprexa Odt) 5 mg TL DAILY LIANET Oxymetazoline HCl (Afrin) 2 sprays LOIS BID LIANET Polyethylene Glycol (Miralax) 17 gm PO DAILY [facility] meds: Warfarin [Coumadin] 5 - 7.5 mg PO DAILY 10/01/16 Metoprolol Succinate 100 mg PO DAILY 10/13/18 Sertraline HCl [Zoloft] 100 mg ORAL DAILY 10/13/18 Objective - Vital Signs/Intake & Output Reviewed Vital Signs: Yes Vital Signs: Vital Signs x48h Temp Pulse Resp BP Pulse Ox 10/14/18 07:47 36.9 C 94 20 104/64 96 Intake & Output: Intake & Output 10/11/18 10/12/18 10/13/18 10/14/18 23:59 23:59 23:59 23:59 Intake Total 3367.838 7192 Output Total 648 975 Balance 1088.607 2664 - Objective General Appearance: positive: No acute distress, Alert, Lethargic Eyes Bilateral: positive: PERRL ENT: positive: Pharynx nml, Dry mucous membranes Neck: positive: Thyroid nml, No JVD Respiratory: positive: Chest non-tender, Wheezes, Rhonchi Cardiovascular: positive: No murmur, Irregularly irregular, Tachycardia, Systolic murmur, Decreased pulse(s) Peripheral Pulses: 1+ Radial (R), 1+ Radial (L) Abdomen: positive: Non-tender, Nml bowel sounds, Other (firm, obese) Back: positive: Nml inspection Skin: positive: No rash, Warm, Dry, Pallor Extremities: positive: Non-tender, Pedal edema (trace, BLEs, discoloration), Joint swelling Neurologic/Psychiatric: positive: Disoriented to place, Disoriented to time, Weakness, Sensory loss, Slurred/abnml speech, Depressed mood/affect, Other (baseline advanced dementia) Reflexes: Bicep (R): 2+, Bicep (L): 2+ - Lab Results Fish Bones: 10/14/18 05:10 10/14/18 05:10 Other Labs: Lab Results x24hrs 10/14/18 10/14/18 10/14/18 Range/Units 08:56 08:56 05:10 WBC (4.8-10.8) x10^3/uL RBC (4.70-6.10) 10^6/uL Hgb (14.0-18.0) g/dL Hct (42.0-52.0) % MCV (80.0-94.0) fL MCH (27.0-31.0) pg MCHC (32.0-36.0) g/dL RDW (12.0-15.0) % Plt Count (130-450) 10^3/uL MPV (7.4-11.4) fL Neut # (Auto) (1.5-6.6) 10^3/uL Lymph # (Auto) (1.5-3.5) 10^3/uL [place] # (Auto) (0.0-1.0) 10^3/uL Eos # (Auto) (0.0-0.7) 10^3/uL Baso # (Auto) (0.0-0.1) 10^3/uL Absolute Nucleated RBC x10^3/uL Nucleated RBC % /100WBC Sodium 140 (135-145) mmol/L Potassium 4.0 (3.5-5.0) mmol/L Chloride 110 (101-111) mmol/L Carbon Dioxide 23 (21-32) mmol/L Anion Gap 7.0 (6-13) BUN 22 H (6-20) mg/dL Creatinine 1.0 (0.6-1.2) mg/dL Estimated GFR (MDRD) 72 L (>89) Glucose 150 H (70-100) mg/dL Lactic Acid (0.5-2.2) mmol/L Calcium 8.2 L (8.5-10.3) mg/dL Total Creatine Kinase 04969 H* (22-269) IU/L Troponin I 13.80 H* (<0.49) ng/mL Urine Color Urine Clarity (CLEAR) Urine pH (5.0-7.5) PH Ur Specific Rudolph (1.002-1.030) Urine Protein (NEGATIVE) mg/dL Urine Glucose (UA) (NEGATIVE) mg/dL Urine Ketones (NEGATIVE) mg/dL Urine Occult Blood (NEGATIVE) Urine Nitrite (NEGATIVE) Urine Bilirubin (NEGATIVE) Urine Urobilinogen (NORMAL) E.U./dL Ur Leukocyte Esterase (NEGATIVE) Urine RBC (0-5) /HPF Urine WBC (0-3) /HPF Ur Squamous Epith Cells (<= Few) Amorphous Sediment /LPF Urine Bacteria (None Seen) /HPF Urine Casts /LPF Urine Mucus Ur Microscopic Review Urine Culture Comments 10/14/18 10/14/18 10/13/18 Range/Units 05:10 01:50 20:05 WBC 8.9 (4.8-10.8) x10^3/uL RBC 4.00 L (4.70-6.10) 10^6/uL Hgb 12.4 L (14.0-18.0) g/dL Hct 36.9 L (42.0-52.0) % MCV 92.2 (80.0-94.0) fL MCH 30.9 (27.0-31.0) pg MCHC 33.5 (32.0-36.0) g/dL RDW 14.3 (12.0-15.0) % Plt Count 168 (130-450) 10^3/uL MPV 8.5 (7.4-11.4) fL Neut # (Auto) 6.9 H (1.5-6.6) 10^3/uL Lymph # (Auto) 1.0 L (1.5-3.5) 10^3/uL [place] # (Auto) 0.9 (0.0-1.0) 10^3/uL Eos # (Auto) 0.0 (0.0-0.7) 10^3/uL Baso # (Auto) 0.1 (0.0-0.1) 10^3/uL Absolute Nucleated RBC 0.01 x10^3/uL Nucleated RBC % 0.1 /100WBC Sodium (135-145) mmol/L Potassium (3.5-5.0) mmol/L Chloride (101-111) mmol/L Carbon Dioxide (21-32) mmol/L Anion Gap (6-13) BUN (6-20) mg/dL Creatinine (0.6-1.2) mg/dL Estimated GFR (MDRD) (>89) Glucose (70-100) mg/dL Lactic Acid 1.6 (0.5-2.2) mmol/L Calcium (8.5-10.3) mg/dL Total Creatine Kinase (22-269) IU/L Troponin I 19.88 H* (<0.49) ng/mL Urine Color Urine Clarity (CLEAR) Urine pH (5.0-7.5) PH Ur Specific Rudolph (1.002-1.030) Urine Protein (NEGATIVE) mg/dL Urine Glucose (UA) (NEGATIVE) mg/dL Urine Ketones (NEGATIVE) mg/dL Urine Occult Blood (NEGATIVE) Urine Nitrite (NEGATIVE) Urine Bilirubin (NEGATIVE) Urine Urobilinogen (NORMAL) E.U./dL Ur Leukocyte Esterase (NEGATIVE) Urine RBC (0-5) /HPF Urine WBC (0-3) /HPF Ur Squamous Epith Cells (<= Few) Amorphous Sediment /LPF Urine Bacteria (None Seen) /HPF Urine Casts /LPF Urine Mucus Ur Microscopic Review Urine Culture Comments 01/29/19 01/29/19 Range/Units 20:05 16:44 WBC (4.8-10.8) x10^3/uL RBC (4.70-6.10) 10^6/uL Hgb (14.0-18.0) g/dL Hct (42.0-52.0) % MCV (80.0-94.0) fL MCH (27.0-31.0) pg MCHC (32.0-36.0) g/dL RDW (12.0-15.0) % Plt Count (130-450) 10^3/uL MPV (7.4-11.4) fL Neut # (Auto) (1.5-6.6) 10^3/uL Lymph # (Auto) (1.5-3.5) 10^3/uL [place] # (Auto) (0.0-1.0) 10^3/uL Eos # (Auto) (0.0-0.7) 10^3/uL Baso # (Auto) (0.0-0.1) 10^3/uL Absolute Nucleated RBC x10^3/uL Nucleated RBC % /100WBC Sodium (135-145) mmol/L Potassium (3.5-5.0) mmol/L Chloride (101-111) mmol/L Carbon Dioxide (21-32) mmol/L Anion Gap (6-13) BUN (6-20) mg/dL Creatinine (0.6-1.2) mg/dL Estimated GFR (MDRD) (>89) Glucose (70-100) mg/dL Lactic Acid (0.5-2.2) mmol/L Calcium (8.5-10.3) mg/dL Total Creatine Kinase (22-269) IU/L Troponin I 21.98 H* (<0.49) ng/mL Urine Color BROWN Urine Clarity CLOUDY (CLEAR) Urine pH 6.5 (5.0-7.5) PH Ur Specific Rudolph >=1.030 H (1.002-1.030) Urine Protein 100 H (NEGATIVE) mg/dL Urine Glucose (UA) NEGATIVE (NEGATIVE) mg/dL Urine Ketones NEGATIVE (NEGATIVE) mg/dL Urine Occult Blood LARGE H (NEGATIVE) Urine Nitrite POSITIVE H (NEGATIVE) Urine Bilirubin NEGATIVE (NEGATIVE) Urine Urobilinogen 0.2 (NORMAL) (NORMAL) E.U./dL Ur Leukocyte Esterase NEGATIVE (NEGATIVE) Urine RBC 0-5 (0-5) /HPF Urine WBC 0-3 (0-3) /HPF Ur Squamous Epith Cells RARE Squamous (<= Few) Amorphous Sediment Few /LPF Urine Bacteria None Seen (None Seen) /HPF Urine Casts 3-5 Fine Granular /LPF Urine Mucus Few Strands Ur Microscopic Review INDICATED Urine Culture Comments INDICATED ABX Reporting Has patient been on IV antibiotics over the past 48 hours?: Yes Sepsis Event Note (H) - Evaluation Current Stage of Sepsis: Ruled out Assessment/Plan - Problem List (1) Rhabdomyolysis Impression: The patient had an elevated total creatine kinase of 16,820, which matches the story from the as he is suspected as lying on the floor for 8-10 hours overnight. Today, this has become worse at greater than 22,000. Luckily his kidney function remains WNLs. Plan: NS IV @ 100ml /hour. Re-check CK, routine labs. Qualifiers: Rhabdomyolysis type: traumatic Encounter type: initial encounter Qualified Code(s): T79.6XXA - Traumatic ischemia of muscle, initial encounter (2) Complicated UTI (urinary tract infection) Impression: A urine sample in the ED showed + nitrites (may indicate e. coli) and shows an acute infection. The patient had an elevated WBC count of 13.6 and profound weakness leading up to this event. A suárez in now in place. He has been started on Rocephin IV. Plan: Continue daily Rocephin, await final cultures. (3) NSTEMI (non-ST elevated myocardial infarction) Impression: Troponin reached a peak of 21, and this morning was trending down at ~13. Given this event, he cannot be started on steroids for his acute hypoxia. Follow up EKG shows a new QS wave in leads II, III, and AVF. Plan: Continue serial troponins, one more this evening. Continue ASA, start imdur tonight. One time dose of Lovenox, and titrate up metoprolol to a max dose of 100mg BID. (4) Acute metabolic encephalopathy Impression: The patient has baseline Alzheimer's dementia, but also has hospital delirium. He is picking at things that are not present, saying things out of context or just not responding. Plan: continue nightly Zyprexa, monitor for worsening. FALL precautions. (5) Acute respiratory failure with hypoxia Impression: The patient does not normally wear supplemental oxygen at home, but has required oxygen for greater than 24 hours. This is likely due to his acute illness and generous IV fluids. The oxygen tubing has irritated his nose, so I have added Afrin spray to be given for the next 3 days. Plan: Respiratory care, Oxygen, Afrin spray x3 days, scheduled nebulizers, and incentive spirometry. May give morphine as needed for SOA, anxiety, to ease breathing. (6) Fluid overload Impression: The patient has baseline RICHARD and chronic atrial fibrillation. I have no recent echocardiogram, so his EF is unknown, but I suspect at the very least that he has pulmonary hypertension given his body habitous and his history of obstructive sleep apnea. He has been on and off wheezy today on exam. We have adjusted his IV fluids accordingly. Nursing asked to give lasix, which would be contraindicated in light of treating his rhabdomyolosis. I have ordered respiratory care to adjust the oxygen, incentive spirometer teaching and to start Xopenex nebs to avoid tachycardia given his current NC. His weight is up from 99 kg now to 126 kg, but I suspect an error. Plan: Continue gentle IV fluids, monitor respiratory status, I.S, nebs, and routine labs. Qualifiers: Hypervolemia type: transfusion-associated Qualified Code(s): E87.71 - Transfusion associated circulatory overload (7) Fall Impression: The patient's states that he has been falling more in the past few weeks and is able to get on his hands and knees, then use his arms to pull himself back to a standing position. She does not believe this is due to syncope in which he looses consciousness, rather, his legs just give out. Although he has been restless, no falls for this hospital stay. Plan: PT prior to discharge. Qualifiers: Encounter type: subsequent encounter Qualified Code(s): W19.XXXD - Unspecified fall, subsequent encounter (8) Alzheimer's dementia with behavioral disturbance Impression: The patient's , Magalis states that he was diagnosed about 10 years ago, but in the past 1 month there has been a noticeable difference in his behavior. Luckily, she believes that he can still recognize her each day. He has been acting strange while eating, when previously he was a great eater in which he holds food in his mouth for a prolonged time before swallowing. She states it is like he forgets what he was doing, which is not his character. She states that he has had more falls and his gait is shuffled lately. She denies any coughing noticed after swallowing. This condition has become exacerbated by his hospital stay. Plan: Continue to treat acute illness, Palliative care meeting for at 0930am, confirmed with Margareth Stuart. Qualifiers: Alzheimer's disease onset: early-onset Qualified Code(s): G30.0 - Alzheimer's disease with early onset; F02.81 - Dementia in other diseases classified elsewhere with behavioral disturbance (9) Obesity (BMI 30-39.9) Impression: The patient has been overweight for several years and has been falling lately. He consequently has RICHARD, but this is not officially diagnosed with a sleep study. His states he is a very loud snorer, and she has to sleep in a dif ferent room. He appears to have a very large neck circumference, although I have not measured it. Plan: Continue care, fall precautions. (10) Chronic atrial fibrillation Impression: The patient has had a-fib for greater than 10 years and is rate controlled with metoprolol, on warfarin for his atrial fib. His INR was sub-therapeutic at 1.9. His is agreeable to taking him off the anticoagulation due to the risk- benefit ratio of his falls making at risk for bleeding. Plan: Continue care, await echo, continue to titrate up metoprolol, ASA, one time dose of Lovenox, and start Imdur. (11) detention current use of anticoagulant Impression: The patient was on warfarin and his INR was 1.9, but his is agreeable to stopping Warfarin in light of the risk-benefit ratio. Plan: Stop Warfarin, continue ASA in the AM. (12) Essential hypertension Impression: The patient is prescribed metoprolol at home, which has been continued here. On admission B/Ps were been elevated at 136/101, now slightly improved. Plan: Continue metoprolol to titrate up, monitor B/P for hypotension with his NSTEMI. (13) Major depressive disorder Impression: The patient is prescribed sertraline at home that may be continued here. Plan: Continue med. Qualifiers: Major depression recurrence: recurrent Major depression episode severity: moderate
[2018-10-14] MEDS ORDERED: IPRATROPIUM/ALBUTEROL 3 ML NEB INH PRN (18:07)
[2018-10-14] MEDS ORDERED: ENOXAPARIN 120 MG/0.8 ML SYRINGE SUBQ ONE (18:18)
[2018-10-14] MEDS ORDERED: LEVALBUTEROL 1.25 MG/3 ML NEB INH PRN (18:21)
[2018-10-14 18:28] LABS: VBG PCO2 40.8 mmHg (41-51); VBG PH 7.386 (7.31-7.41); VBG PO2 39.7 mmHg (25-47); VBG TOTAL CO2 25.2 mmol/L (24-29)
[2018-10-14] MEDS ORDERED: IPRATROPIUM/ALBUTEROL 3 ML NEB INH SCH (19:00)
[2018-10-14 19:07] LABS: BILIRUBIN,DIRECT 0.1 mg/dL (0.1-0.5); BILIRUBIN,TOTAL 0.7 mg/dL (0.2-1.0); TOTAL PROTEIN 6.2 g/dL (6.7-8.2)
[2018-10-14] MEDS: ISOSORBIDE MONONITRATE ER 30 MG TABLET PO SCH (19:13)
[2018-10-14] MEDS: METOPROLOL SUCCINATE 50 MG TABLET PO SCH (19:14)
[2018-10-14] MEDS: LEVALBUTEROL 1.25 MG/3 ML NEB INH SCH (20:53)
[2018-10-14] MEDS: OXYMETAZOLINE NASAL SPRAY NAS SCH (21:18)
[2018-10-15] MEDS: SODIUM CHLORIDE FLUSH 0.9% 10 ML SYRINGE IVP SCH ×3 (00:01→17:27)
[2018-10-15] MEDS: LEVALBUTEROL 1.25 MG/3 ML NEB INH SCH ×4 (01:00→17:34)
[2018-10-15 05:11] LABS: BASOPHILS # (AUTO) 0.1 10^3/uL (0.0-0.1); BASOPHILS % (AUTO) 0.8 %; EOSINOPHILS # (AUTO) 0.1 10^3/uL (0.0-0.7); EOSINOPHILS % (AUTO) 1.5 %; HGB - HEMOGLOBIN 11.8 g/dL (14.0-18.0); LYMPHOCYTES # (AUTO) 1.1 10^3/uL (1.5-3.5); LYMPHOCYTES % (AUTO) 13.5 %; MEAN CORPUSCULAR HEMOGLOBIN 30.2 pg (27.0-31.0); MEAN CORPUSCULAR HGB CONC 32.3 g/dL (32.0-36.0); MEAN CORPUSCULAR VOLUME 93.6 fL (80.0-94.0); MEAN PLATELET VOLUME 8.5 fL (7.4-11.4); MONOCYTES # (AUTO) 0.8 10^3/uL (0.0-1.0); NEUTROPHILS # (AUTO) 6.1 10^3/uL (1.5-6.6); NEUTROPHILS % (AUTO) 74.2 %; PLT - PLATELET COUNT 175 10^3/uL (130-450); RED CELL DISTRIBUTION WIDTH 14.7 % (12.0-15.0); WHITE BLOOD COUNT 8.2 x10^3/uL (4.8-10.8)
[2018-10-15 05:28] LABS: ALBUMIN/GLOBULIN RATIO 1.1 (1.0-2.2); BILIRUBIN,TOTAL 0.8 mg/dL (0.2-1.0); CALCIUM 8.2 mg/dL (8.5-10.3); TOTAL PROTEIN 5.8 g/dL (6.7-8.2)
[2018-10-15] MEDS: SODIUM CHLORIDE 0.9% 1,000 ML IV SCH ×2 (06:23→16:57)
[2018-10-15] MEDS: ISOSORBIDE MONONITRATE ER 30 MG TABLET PO SCH (08:43)
[2018-10-15] MEDS: OLANZapine ODT 5 MG TABLET TL SCH (08:43)
[2018-10-15] MEDS: ASPIRIN 325 MG TABLET PO SCH (08:43)
[2018-10-15] MEDS: SENNA 8.6 MG TABLET PO SCH (08:43)
[2018-10-15] MEDS: METOPROLOL SUCCINATE 50 MG TABLET PO SCH ×2 (08:44→17:26)
[2018-10-15] MEDS: POLYETHYLENE GLYCOL 3350 17 GM PACKET PO SCH (08:48)
[2018-10-15] MEDS: ENOXAPARIN 40 MG/0.4 ML SYRINGE SUBQ SCH (08:49)
[2018-10-15] MEDS: cefTRIAXone 2 GM in SODIUM CHLORIDE 0.9% MINIBAG 100 ML IV SCH (08:51)
[2018-10-15] MEDS: OXYMETAZOLINE NASAL SPRAY NAS SCH ×2 (08:52→20:27)
--- NOTE | 2018-10-15 10:46 | CONSULTATION NOTE ---
Palliative Care Consultation - Referral Referring Provider: Marva AGUSTIN Time of Visit: :11:30-11:45 Referral setting: Hospitalized patient Referral Reason: Advance Dementia/CHF/Rhabdo/Goals of Care - Information Sources Records reviewed: RN notes reviewed, Previous records reviewed History/Review of Systems obtained from: Family (Daughter Kailee and Magalis) Exam limitations: Clinical condition (patient with advanced dementia; dis oriented x 3) - History of Present Illness Brief History of Present Illness: This is an unfortunate 78-year-old male who is acutely admitted to [facility] on 10/13/2018 after patient was found down, attributed to 8-10 hours on the floor, admitted with rhabdomyolysis, N STEMI, and advanced Alzheimer's. Patient has been bedbound since admit, is breathless with any kind of activity, presents with delirium on top of his ongoing progressive dementia and confusion. And currently still with elevated CK at 14,172. Patient is pleasant, talks about traveling, denies pain or distress but does not appear to comfortable. Patient is quite large at 5 ft 10 inches and a BMI of 41, currently has suárez catheter, is awake, does appear to recognize family, but is not able to meaningfully participate in conversation regarding goals of care. Patient's diagnosis of Alzheimer's was over 10 years ago. Patient never was aware nor accepting when originally worked up. Patient originally was somewhat belligerent, but has over the years mellowed out. He is quite pleasant, and Fide has been his caregiver, managing as he has continued to decline. He is most acutely declined over the last year and a half, has not known that he is really been at home, he has been wanting to pack his bag, though family perceives though patient does not know home anymore does feel safe. Patient's absolutely loves to eat, is easily redirected and distracted with food, has always been quite social. He is most acutely declined over the last several months, with increasing falls, increased difficulty with urination and defecation, has needed more cueing, and significantly more care. He has had poor balance since [place], increasing loss of words, more traveling team, delusions and hallucinations regarding multiple family members living in their 3 bedroom house. He is easily redirected and distracted, has not had any wandering behaviors, and has been pleasant overall. acutely aware, with patient's functional and cognitive decline, she is no longer going to be able to meet his care needs at home. It was somewhat borderline over the last several weeks as far as feeling like she had met the threshold for needing placement. patient has been sleeping about 60-70% of the day, but awake for meals. Has done MARY application, concern for finances, aware has spend down. Patients co-morbidities and past medical history include metastatic prostate cancer on Lupron; CKD Stage III; CHF, atrial fibrillation currently off anticoag; RICHARD, elevated LFTs. has been actively involved in Alzheimer's caregiver support groups, is very much aware of the implications and expected decline. Discussed at has been actively involved in Alzheimer's caregiver support groups, is very much aware of the implications and expected decline. Discussed at length, patient has acutely presented with severe change in condition, both cognitively, functionally, and medically. Have agreed to meet with palliative care to discuss goals of care for her moving forward Medical/Surgical History - Past Medical History Cardiovascular: reports: Congestive heart failure, Hypertension, Peripheral Vascular Disease, Atrial flutter, Murmur, Arrhythmia Respiratory: reports: Asthma, Sleep apnea Neuro: Alzhiemer's, Dementia, Peripheral neuropathy Endocrine/Autoimmune: reports: None GI: reports: GERD : reports: Benign prostate hypertrophy, Nocturia, Frequency, Other (Prostate Cancer) HEENT: reports: Chronic vision loss, Chronic hearing loss Psych: reports: Depression Musculoskeletal: reports: Osteoarthritis, Fatigue Derm: reports: None MRSA Hx?: No - Past Surgical History Ortho: reports: Hip replacement - Substance History Use: Uses substance without health or social issues: NONE Abuse: Recurrent use of substance despite neg consequences: NONE Dependence: Experiences withdrawal or developed tolerances: NONE Social History - Living Situation Living arrangement: At home Living Situation: With spouse/s.o. Support System: Pain he has been entirely his caregiver, but is quite exhausted from the last several weeks to months. She reports they have had a good life, and has found that dealing with humor and the fact that he had a good relationship has helped her manage. She does feel currently, daughter concurs, no longer able to be able to be primary caregiver. Patient has daughter Kailee, who lives in [place] with her 2 children, there is a son Bill in [place], awaiting to decide whether to come out or not given the acuity of the situation. Family History - Family History Family History: Mother: , Alzheimer's Disease, Father: , CAD, Sister: , Cancer Medications/Allergies - Medications Active Medication List: Active Medications Acetaminophen (Tylenol) 650 mg PO Q4HR PRN PRN Reason: Pain or Fever > 38C (100.4F) Aspirin (Mir) 325 mg PO DAILYWM [facility] Last Admin: 10/15/18 08:43 Dose: 325 mg Enoxaparin Sodium (Lovenox) 40 mg SUBQ DAILY [facility] Last Admin: 10/15/18 08:49 Dose: 40 mg Ceftriaxone Sodium 2 gm/ (Sodium Chloride) 100 mls @ 200 mls/hr IV DAILY [facility] Last Infusion: 10/15/18 09:21 Dose: Infused Sodium Chloride (Normal Saline 0.9%) 1,000 mls @ 100 mls/hr IV .Q10H [facility] Last Admin: 10/15/18 06:23 Dose: 100 mls/hr Isosorbide Mononitrate (Imdur) 30 mg PO DAILY [facility] Last Admin: 10/15/18 08:43 Dose: 30 mg Levalbuterol HCl (Xopenex) 1.25 mg INH Q4H PRN PRN Reason: Shortness of Air/Wheezing Last Admin: 10/15/18 00:25 Dose: 1.25 mg Levalbuterol HCl (Xopenex) 1.25 mg INH Q6H [facility] Last Admin: 10/15/18 09:49 Dose: 1.25 mg Lidocaine HCl (Xylocaine Uro-Jet 2%) 2.5 ml UR Q6H PRN PRN Reason: PAIN Last Admin: 10/13/18 20:48 Dose: 2.5 ml Metoprolol Succinate (Toprol Xl) 75 mg PO BIDWM [facility] Last Admin: 10/15/18 08:44 Dose: 75 mg Morphine Sulfate (Morphine (Carpuject)) 2 mg IVP Q2HR PRN PRN Reason: PAIN Olanzapine (Zyprexa Odt) 5 mg TL DAILY [facility] Last Admin: 10/15/18 08:43 Dose: 5 mg Oxymetazoline HCl (Afrin) 2 sprays LOIS BID [facility] Stop: 10/17/18 20:59 Last Admin: 10/15/18 08:52 Dose: 1 spr Polyethylene Glycol (Miralax) 17 gm PO DAILY [facility] Last Admin: 10/15/18 08:48 Dose: 17 gm Senna (Senokot) 8.6 - 17.2 mg PO DAILY [facility] Last Admin: 10/15/18 08:43 Dose: 17.2 mg Sodium Chloride (Normal Saline Flush 0.9%) 10 ml IVP PRN PRN PRN Reason: NEEDED PER PROVIDER ORDERS Sodium Chloride (Normal Saline Flush 0.9%) 10 ml IVP 0100,0900,1700 [facility] Last Admin: 10/15/18 08:53 Dose: Not Given Warfarin [Coumadin] 5 - 7.5 mg PO DAILY 10/01/16 Metoprolol Succinate 100 mg PO DAILY 10/13/18 Sertraline HCl [Zoloft] 100 mg ORAL DAILY 10/13/18 - Allergies Allergies/Adverse Reactions: Allergies Allergy/AdvReac Type Severity Reaction Status Date / Time adhesive Allergy Rash Verified 10/13/18 11:10 Review of Systems - Constitutional Constitutional: reports: Fatigue - Cardiovascular Cardiovascular: reports: Exertional dyspnea, Decr. exercise tolerance - Respiratory Respiratory: reports: Wheezing, SOB at rest, SOB with exertion - Gastrointestinal Gastrointestinal: reports: Good appetite - Genitourinary Genitourinary: reports: Other (currently has suárez catheter) - Musculoskeletal Musculoskeletal: reports: Stiffness, Muscle weakness, Other (has been bedbound) - Integumentary Integumentary: reports: Dryness, Other (right pressure ulcer great toe base; dried) - Neurological Neurological: reports: Memory problems - Psychiatric Psychiatric: reports: Delusions, Hallucinations. denies: Anxiety - All Other Systems All Other Systems: reports: Other (limited ROS) Physical Exam - Vital Signs Vital Signs: Vital Signs x48h Temp Pulse Pulse Resp BP Pulse Ox 10/15/18 09:52 36.7 C 60 22 97 10/15/18 09:50 60 22 10/15/18 07:59 36.7 C 70 22 111/71 97 - Physical Exam General Appearance: positive: Mild distress Eyes Bilateral: positive: Normal inspection ENT: positive: No signs of dehydration Neck: positive: Other (thick neck) Cardiovascular: positive: Irregularly irregular Respiratory: positive: Diminished throughout, Wheezes, Other (respiratory effort with any movement) Abdomen: positive: Non-tender, Soft, Obese Skin: positive: Pallor, Dryness Neurologic/Psychiatric: positive: Mood/affect nml, Disoriented to person, Disoriented to place, Disoriented to time, Other (conversation social/traveling theme; no word salad but word finding issues noted; does easily engage and is pleasant) Palliative Care - POLST Patient has POLST: Yes POLST Status: DNR (Discussion regarding Comfort Focus) Pain: No pain - Palliative Care Discussion: 09Has been somewhat frustrating as there is no answer regarding patient's current level of functioning, expected decline, or outcome of acute hospitalization known at this point in time. Prior to the time we met, we are waiting on evaluation regarding cardiac status is patient is with severe shortness of breath, wheezing, and appears to be significantly compromised. Reviewed current journey with illness, and most recent acute changes in decline. They do have a BERTIN ST completed with Dr. larsen in 2018 as a DNA R and limited interventions. 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 Both daughter and do not feel patient recognizes where he is anym ore in his home setting, though are concerned regarding transitions in the future. Did discuss at length the team needs some direction as far as what is acceptable interventions at this point in time, Fide is quite clear her goals for him are to focus on comfort, respect, and make sure he has enough "ice cream bars". Counseling provided regarding anticipatory guidance, the continuum of care, with advanced dementia most often does not meet skilled care as patient is unable to participate in rehab. Counseling provided regarding the continuum of care regarding palliative care versus hospice, if patient were to meet 6 month or less prognosis can have hospice in alternative setting, and often adds to quality of care and ability to meet goals of comfort. Discussed different settings SNF, memory care units, patient too heavy of care for [facility] at this point. Questions answered psychosocial support provided. ADDENDUM: 11:30 Met with daughter and again regarding follow-up on consult with cardiology/hospitalist, patient with systolic and diastolic CHF, with about 15% ejection fraction. Patient classified as NYHA class IV, and does show evidence of WI. Given patient's multiple underlying comorbidities, underlying acute complications from recent fall, goals to focus on comfort, family would like to move forward with hospice support in setting patient is transitioning to. BILINGUAL INSTRUCTOR working on placement options, staffed with [facility], will accept patient on hospice team Results - Lab Results Lab results reviewed: Yes Fish Bones: 10/15/18 04:45 10/15/18 04:45 Lab and Imaging Results: Lab Results x24hrs 10/15/18 10/15/18 10/15/18 Range/Units 04:45 04:45 04:45 WBC (4.8-10.8) x10^3/uL RBC (4.70-6.10) 10^6/uL Hgb (14.0-18.0) g/dL Hct (42.0-52.0) % MCV (80.0-94.0) fL MCH (27.0-31.0) pg MCHC (32.0-36.0) g/dL RDW (12.0-15.0) % Plt Count (130-450) 10^3/uL MPV (7.4-11.4) fL Neut # (Auto) (1.5-6.6) 10^3/uL Lymph # (Auto) (1.5-3.5) 10^3/uL Jones # (Auto) (0.0-1.0) 10^3/uL Eos # (Auto) (0.0-0.7) 10^3/uL Baso # (Auto) (0.0-0.1) 10^3/uL Absolute Nucleated RBC x10^3/uL Nucleated RBC % /100WBC VBG pH (7.31-7.41) VBG pCO2 (41-51) mmHg VBG pO2 (25-47) mmHg VBG HCO3 (23-28) mmol/L VBG Total CO2 (24-29) mmol/L VBG O2 Saturation (60-80) % VBG Base Excess (-2 - +2) mmol/L Sodium 138 (135-145) mmol/L Potassium 4.2 (3.5-5.0) mmol/L Chloride 110 (101-111) mmol/L Carbon Dioxide 23 (21-32) mmol/L Anion Gap 5.0 L (6-13) BUN 17 (6-20) mg/dL Creatinine 1.0 (0.6-1.2) mg/dL Estimated GFR (MDRD) 72 L (>89) Glucose 139 H (70-100) mg/dL Lactic Acid (0.5-2.2) mmol/L Calcium 8.2 L (8.5-10.3) mg/dL Total Bilirubin 0.8 (0.2-1.0) mg/dL Direct Bilirubin (0.1-0.5) mg/dL AST 479 H (10-42) IU/L ALT 150 H (10-60) IU/L Alkaline Phosphatase 41 L (42-121) IU/L Total Creatine Kinase 95380 H* (22-269) IU/L Troponin I 9.01 H* (<0.49) ng/mL B-Natriuretic Peptide (5-100) pg/mL Total Protein 5.8 L (6.7-8.2) g/dL Albumin 3.0 L (3.2-5.5) g/dL Globulin 2.8 (2.1-4.2) g/dL Albumin/Globulin Ratio 1.1 (1.0-2.2) 10/15/18 10/14/18 10/14/18 Range/Units 04:45 18:18 18:18 WBC 8.2 (4.8-10.8) x10^3/uL RBC 3.90 L (4.70-6.10) 10^6/uL Hgb 11.8 L (14.0-18.0) g/dL Hct 36.5 L (42.0-52.0) % MCV 93.6 (80.0-94.0) fL MCH 30.2 (27.0-31.0) pg MCHC 32.3 (32.0-36.0) g/dL RDW 14.7 (12.0-15.0) % Plt Count 175 (130-450) 10^3/uL MPV 8.5 (7.4-11.4) fL Neut # (Auto) 6.1 (1.5-6.6) 10^3/uL Lymph # (Auto) 1.1 L (1.5-3.5) 10^3/uL Jones # (Auto) 0.8 (0.0-1.0) 10^3/uL Eos # (Auto) 0.1 (0.0-0.7) 10^3/uL Baso # (Auto) 0.1 (0.0-0.1) 10^3/uL Absolute Nucleated RBC 0.00 x10^3/uL Nucleated RBC % 0.1 /100WBC VBG pH 7.386 (7.31-7.41) VBG pCO2 40.8 L (41-51) mmHg VBG pO2 39.7 (25-47) mmHg VBG HCO3 23.9 (23-28) mmol/L VBG Total CO2 25.2 (24-29) mmol/L VBG O2 Saturation 78.6 (60-80) % VBG Base Excess -1.0 (-2 - +2) mmol/L Sodium (135-145) mmol/L Potassium (3.5-5.0) mmol/L Chloride (101-111) mmol/L Carbon Dioxide (21-32) mmol/L Anion Gap (6-13) BUN (6-20) mg/dL Creatinine (0.6-1.2) mg/dL Estimated GFR (MDRD) (>89) Glucose (70-100) mg/dL Lactic Acid 1.1 (0.5-2.2) mmol/L Calcium (8.5-10.3) mg/dL Total Bilirubin (0.2-1.0) mg/dL Direct Bilirubin (0.1-0.5) mg/dL AST (10-42) IU/L ALT (10-60) IU/L Alkaline Phosphatase (42-121) IU/L Total Creatine Kinase (22-269) IU/L Troponin I (<0.49) ng/mL B-Natriuretic Peptide (5-100) pg/mL Total Protein (6.7-8.2) g/dL Albumin (3.2-5.5) g/dL Globulin (2.1-4.2) g/dL Albumin/Globulin Ratio (1.0-2.2) 10/14/18 10/14/18 10/14/18 Range/Units 18:18 18:18 18:18 WBC (4.8-10.8) x10^3/uL RBC (4.70-6.10) 10^6/uL Hgb (14.0-18.0) g/dL Hct (42.0-52.0) % MCV (80.0-94.0) fL MCH (27.0-31.0) pg MCHC (32.0-36.0) g/dL RDW (12.0-15.0) % Plt Count (130-450) 10^3/uL MPV (7.4-11.4) fL Neut # (Auto) (1.5-6.6) 10^3/uL Lymph # (Auto) (1.5-3.5) 10^3/uL Jones # (Auto) (0.0-1.0) 10^3/uL Eos # (Auto) (0.0-0.7) 10^3/uL Baso # (Auto) (0.0-0.1) 10^3/uL Absolute Nucleated RBC x10^3/uL Nucleated RBC % /100WBC VBG pH (7.31-7.41) VBG pCO2 (41-51) mmHg VBG pO2 (25-47) mmHg VBG HCO3 (23-28) mmol/L VBG Total CO2 (24-29) mmol/L VBG O2 Saturation (60-80) % VBG Base Excess (-2 - +2) mmol/L Sodium (135-145) mmol/L Potassium (3.5-5.0) mmol/L Chloride (101-111) mmol/L Carbon Dioxide (21-32) mmol/L Anion Gap (6-13) BUN (6-20) mg/dL Creatinine (0.6-1.2) mg/dL Estimated GFR (MDRD) (>89) Glucose (70-100) mg/dL Lactic Acid (0.5-2.2) mmol/L Calcium (8.5-10.3) mg/dL Total Bilirubin 0.7 (0.2-1.0) mg/dL Direct Bilirubin 0.1 (0.1-0.5) mg/dL AST 559 H (10-42) IU/L ALT 159 H (10-60) IU/L Alkaline Phosphatase 45 (42-121) IU/L Total Creatine Kinase 47500 H* (22-269) IU/L Troponin I 10.67 H* (<0.49) ng/mL B-Natriuretic Peptide 231 H (5-100) pg/mL Total Protein 6.2 L (6.7-8.2) g/dL Albumin 3.0 L (3.2-5.5) g/dL Globulin 3.2 (2.1-4.2) g/dL Albumin/Globulin Ratio (1.0-2.2) Impression and Recommendations - Palliative Care Impression: This is a 78-year-old gentleman who has had ongoing functional and cognitive decline related to his advanced Alzheimer's, and multiple comorbidities. Jocelynn onofre was admitted acutely secondary to being found down, and has significant sequela related to this, has shown some improvement, but remains quite compromised including bedbound status, improving delerium, but severe dementia. Patient presents today with follow-up on cardiac function, showing systolic and diastolic CHF with 15% ejection fraction and NYHA class IV with his other comorbidities would make him hospice eligible. Recommendations/Counseling Done: 1. Advanced care planning. Patient family meeting initiated to establish goals of care, Irina goals for her are to focus on comfort and respect, hoping for an easy transition to end of life with no further hospitalizations nor aggressive interventions. She very much does not want to cause him inc reased anxiety or distress, but no longer can meet his care needs at home. Perceives his current quality of life is continued to deteriorate, with patient's fragile status, will discharge/transition to new setting with hospice support. Above information communicated to the interdisciplinary team. *Terminal diagnosis will be CHF stage IV, with comorbidities of advanced dementia, FAST7A, though now he does present as nonambulatory, atrial fib, bedbound status, obesity, RICHARD. 2. Caregiver fatigue. Counseling to normalize feeling of grief,loss,guilt and anxiety with pending transition. Validation given for the many years, and care given, reviewed normal course for patient's with dementia, acute decline/hospitalization/falls/infections usually lead to EOL events and decisions. Follow up by BILINGUAL INSTRUCTOR to help with placement options. Time Spent: 75 minutes with greater than 50% of this done in counseling regarding family conference, establishing goals of care, providing edging regarding disease process and anticipatory guidance as well as continuum of care. Coordination of care done with hospice medical management specialist, clinical science liaison, hospitalist and BILINGUAL INSTRUCTOR
--- NOTE | 2018-10-15 11:07 | PROVIDER PROGRESS NOTE ---
Subjective - Prog Note Date Prog Note Date: 10/15/18 Prog Note Time: 11:07 - Subjective Pt reports feeling: Improved Subjective: Edmar offers no complaints but can become agitated at times and after reviewing nursing notes, was agitated several times in the night. Dr. Dumont suggests to schedule the lorazepam to lessen these episodes. The patient's and daughter spent much of the day at the bedside and had a wonderful consult from Palliative care which goals of care were discussed. Current Medications - Current Medications Current Medications: Active Medications: Acetaminophen (Tylenol) 650 mg PO Q4HR PRN Aspirin (Mir) 325 mg PO DAILYWM LIANET Enoxaparin Sodium (Lovenox) 40 mg SUBQ DAILY LIANET Ceftriaxone Sodium 2 gm/ (Sodium Chloride) 100 mls @ 200 mls/hr IV DAILY LIANET Sodium Chloride (Normal Saline 0.9%) 1,000 mls @ 100 mls/hr IV .Q10H LIANET Isosorbide Mononitrate (Imdur) 30 mg PO DAILY LIANET Levalbuterol HCl (Xopenex) 1.25 mg INH Q4H PRN Levalbuterol HCl (Xopenex) 1.25 mg INH Q6H LIANET Lidocaine HCl (Xylocaine Uro-Jet 2%) 2.5 ml UR Q6H PRN Lorazepam (Ativan) 0.5 mg PO Q6H LIANET Metoprolol Succinate (Toprol Xl) 75 mg PO BIDWM LIANET Morphine Sulfate (Morphine (Carpuject)) 2 mg IVP Q2HR PRN Olanzapine (Zyprexa Odt) 5 mg TL DAILY LIANET Oxymetazoline HCl (Afrin) 2 sprays LOIS BID LIANET Polyethylene Glycol (Miralax) 17 gm PO DAILY LIANET Senna (Senokot) 8.6 - 17.2 mg PO DAILY LIANET HOME meds: Warfarin [Coumadin] 5 - 7.5 mg PO DAILY 10/01/16 Metoprolol Succinate 100 mg PO DAILY 10/13/18 Sertraline HCl [Zoloft] 100 mg ORAL DAILY 10/13/18 Objective - Vital Signs/Intake & Output Reviewed Vital Signs: Yes Vital Signs: Vital Signs x48h Temp Pulse Pulse Resp BP Pulse Ox 10/15/18 09:52 36.7 C 60 22 97 10/15/18 09:50 60 22 10/15/18 07:59 36.7 C 70 22 111/71 97 Intake & Output: Intake & Output 10/12/18 10/13/18 10/14/18 10/15/18 23:59 23:59 23:59 23:59 Intake Total 2112.833 4658.333 1113.333 Output Total 690 1650 875 Balance 0353.246 0466.333 238.333 - Objective General Appearance: positive: Alert, Moderate distress, Anxious Eyes Bilateral: positive: PERRL Eyes: OU Conjunctivae pale ENT: positive: Pharynx nml, No signs of dehydration Neck: positive: Thyroid nml, No JVD Respiratory: positive: Chest non-tender, Wheezes, Rhonchi Cardiovascular: positive: No gallop, Irregularly irregular, Systolic murmur, Decreased pulse(s) Peripheral Pulses: 1+ Radial (R), 1+ Radial (L) Abdomen: positive: Non-tender, Nml bowel sounds, Other (firm, obese) Back: positive: Nml inspection Skin: positive: No rash, Warm, Dry, Pallor Extremities: positive: Non-tender, Pedal edema, Joint swelling, Other (BLE discoloration) Neurologic/Psychiatric: positive: Disoriented to person, Disoriented to place, Disoriented to time, Weakness, Sensory loss, Slurred/abnml speech, Depressed mood/affect, Other (baseline advaned dementia) Reflexes: Bicep (R): 2+, Bicep (L): 2+ - Lab Results Fish Bones: 10/15/18 04:45 10/15/18 04:45 Other Labs: Lab Results x24hrs 10/15/18 10/15/18 10/15/18 Range/Units 04:45 04:45 04:45 WBC (4.8-10.8) x10^3/uL RBC (4.70-6.10) 10^6/uL Hgb (14.0-18.0) g/dL Hct (42.0-52.0) % MCV (80.0-94.0) fL MCH (27.0-31.0) pg MCHC (32.0-36.0) g/dL RDW (12.0-15.0) % Plt Count (130-450) 10^3/uL MPV (7.4-11.4) fL Neut # (Auto) (1.5-6.6) 10^3/uL Lymph # (Auto) (1.5-3.5) 10^3/uL Miner # (Auto) (0.0-1.0) 10^3/uL Eos # (Auto) (0.0-0.7) 10^3/uL Baso # (Auto) (0.0-0.1) 10^3/uL Absolute Nucleated RBC x10^3/uL Nucleated RBC % /100WBC VBG pH (7.31-7.41) VBG pCO2 (41-51) mmHg VBG pO2 (25-47) mmHg VBG HCO3 (23-28) mmol/L VBG Total CO2 (24-29) mmol/L VBG O2 Saturation (60-80) % VBG Base Excess (-2 - +2) mmol/L Sodium 138 (135-145) mmol/L Potassium 4.2 (3.5-5.0) mmol/L Chloride 110 (101-111) mmol/L Carbon Dioxide 23 (21-32) mmol/L Anion Gap 5.0 L (6-13) BUN 17 (6-20) mg/dL Creatinine 1.0 (0.6-1.2) mg/dL Estimated GFR (MDRD) 72 L (>89) Glucose 139 H (70-100) mg/dL Lactic Acid (0.5-2.2) mmol/L Calcium 8.2 L (8.5-10.3) mg/dL Total Bilirubin 0.8 (0.2-1.0) mg/dL Direct Bilirubin (0.1-0.5) mg/dL AST 479 H (10-42) IU/L ALT 150 H (10-60) IU/L Alkaline Phosphatase 41 L (42-121) IU/L Total Creatine Kinase 51810 H* (22-269) IU/L Troponin I 9.01 H* (<0.49) ng/mL B-Natriuretic Peptide (5-100) pg/mL Total Protein 5.8 L (6.7-8.2) g/dL Albumin 3.0 L (3.2-5.5) g/dL Globulin 2.8 (2.1-4.2) g/dL Albumin/Globulin Ratio 1.1 (1.0-2.2) 10/15/18 10/14/18 10/14/18 Range/Units 04:45 18:18 18:18 WBC 8.2 (4.8-10.8) x10^3/uL RBC 3.90 L (4.70-6.10) 10^6/uL Hgb 11.8 L (14.0-18.0) g/dL Hct 36.5 L (42.0-52.0) % MCV 93.6 (80.0-94.0) fL MCH 30.2 (27.0-31.0) pg MCHC 32.3 (32.0-36.0) g/dL RDW 14.7 (12.0-15.0) % Plt Count 175 (130-450) 10^3/uL MPV 8.5 (7.4-11.4) fL Neut # (Auto) 6.1 (1.5-6.6) 10^3/uL Lymph # (Auto) 1.1 L (1.5-3.5) 10^3/uL Miner # (Auto) 0.8 (0.0-1.0) 10^3/uL Eos # (Auto) 0.1 (0.0-0.7) 10^3/uL Baso # (Auto) 0.1 (0.0-0.1) 10^3/uL Absolute Nucleated RBC 0.00 x10^3/uL Nucleated RBC % 0.1 /100WBC VBG pH 7.386 (7.31-7.41) VBG pCO2 40.8 L (41-51) mmHg VBG pO2 39.7 (25-47) mmHg VBG HCO3 23.9 (23-28) mmol/L VBG Total CO2 25.2 (24-29) mmol/L VBG O2 Saturation 78.6 (60-80) % VBG Base Excess -1.0 (-2 - +2) mmol/L Sodium (135-145) mmol/L Potassium (3.5-5.0) mmol/L Chloride (101-111) mmol/L Carbon Dioxide (21-32) mmol/L Anion Gap (6-13) BUN (6-20) mg/dL Creatinine (0.6-1.2) mg/dL Estimated GFR (MDRD) (>89) Glucose (70-100) mg/dL Lactic Acid 1.1 (0.5-2.2) mmol/L Calcium (8.5-10.3) mg/dL Total Bilirubin (0.2-1.0) mg/dL Direct Bilirubin (0.1-0.5) mg/dL AST (10-42) IU/L ALT (10-60) IU/L Alkaline Phosphatase (42-121) IU/L Total Creatine Kinase (22-269) IU/L Troponin I (<0.49) ng/mL B-Natriuretic Peptide (5-100) pg/mL Total Protein (6.7-8.2) g/dL Albumin (3.2-5.5) g/dL Globulin (2.1-4.2) g/dL Albumin/Globulin Ratio (1.0-2.2) 10/14/18 10/14/18 10/14/18 Range/Units 18:18 18:18 18:18 WBC (4.8-10.8) x10^3/uL RBC (4.70-6.10) 10^6/uL Hgb (14.0-18.0) g/dL Hct (42.0-52.0) % MCV (80.0-94.0) fL MCH (27.0-31.0) pg MCHC (32.0-36.0) g/dL RDW (12.0-15.0) % Plt Count (130-450) 10^3/uL MPV (7.4-11.4) fL Neut # (Auto) (1.5-6.6) 10^3/uL Lymph # (Auto) (1.5-3.5) 10^3/uL Miner # (Auto) (0.0-1.0) 10^3/uL Eos # (Auto) (0.0-0.7) 10^3/uL Baso # (Auto) (0.0-0.1) 10^3/uL Absolute Nucleated RBC x10^3/uL Nucleated RBC % /100WBC VBG pH (7.31-7.41) VBG pCO2 (41-51) mmHg VBG pO2 (25-47) mmHg VBG HCO3 (23-28) mmol/L VBG Total CO2 (24-29) mmol/L VBG O2 Saturation (60-80) % VBG Base Excess (-2 - +2) mmol/L Sodium (135-145) mmol/L Potassium (3.5-5.0) mmol/L Chloride (101-111) mmol/L Carbon Dioxide (21-32) mmol/L Anion Gap (6-13) BUN (6-20) mg/dL Creatinine (0.6-1.2) mg/dL Estimated GFR (MDRD) (>89) Glucose (70-100) mg/dL Lactic Acid (0.5-2.2) mmol/L Calcium (8.5-10.3) mg/dL Total Bilirubin 0.7 (0.2-1.0) mg/dL Direct Bilirubin 0.1 (0.1-0.5) mg/dL AST 559 H (10-42) IU/L ALT 159 H (10-60) IU/L Alkaline Phosphatase 45 (42-121) IU/L Total Creatine Kinase 86035 H* (22-269) IU/L Troponin I 10.67 H* (<0.49) ng/mL B-Natriuretic Peptide 231 H (5-100) pg/mL Total Protein 6.2 L (6.7-8.2) g/dL Albumin 3.0 L (3.2-5.5) g/dL Globulin 3.2 (2.1-4.2) g/dL Albumin/Globulin Ratio (1.0-2.2) ABX Reporting Has patient been on IV antibiotics over the past 48 hours?: Yes Sepsis Event Note (H) - Evaluation Current Stage of Sepsis: Ruled out Assessment/Plan - Problem List (1) Rhabdomyolysis Impression: The patient had an elevated total creatine kinase of 16,820, which matches the story from the as he is suspected as lying on the floor for 8-10 hours overnight. Today, this is much improved with a CK level of 14,000. Luckily his kidney function remains WNLs with a creatinine of 1.0 and a GFR of 72. Plan: Continue NS IV @ 100ml /hour. Routine CK labs, routine labs. Qualifiers: Rhabdomyolysis type: traumatic Encounter type: initial encounter Qualified Code(s): T79.6XXA - Traumatic ischemia of muscle, initial encounter (2) Systolic congestive heart failure with reduced left ventricular function, NYHA class 4 Impression: There is noted to be severe global hypokinesis of the left ventricle contract ility and an estimated reduced EF of only ~15%. There is evidence of ischemia in the anterior and septal wall. There is a posterior wall thinned and akinetic zone, nearly aneursmal, consistent with an old inferior CT (age indeterminate). The RV is found to be severely enlarged with evidence RVH , indicating long standing RV overload. No Doppler could be done, since this was a "quick-look" bedside Echo done by Dr Ibarra. Plan: Continue medical management with Imdur, beta blockers, ASA and REID/ARB if indicated. Await placement with Hospice care. (3) Elevated LFTs Impression: The patient has had very elevated AST and ALT likely a consequence of the acute heart failure, volume overload, acute CT leading to poor liver perfusion. Plan: Continue daily labs until Hospice care. (4) Complicated UTI (urinary tract infection) Impression: A urine sample in the ED showed + nitrites (may indicate e. coli) and shows an acute infection. The patient had an elevated WBC count of 13.6 and profound weakness leading up to this event. A suárez in now in place. He has been started on Rocephin IV, which continues daily and his WBC count is now normal at 8.2. Plan: Continue daily Rocephin, await final cultures. (5) NSTEMI (non-ST elevated myocardial infarction) Impression: Troponin reached a peak of 21, and this morning was trending down at ~13. Given this event, he cannot be started on steroids for his acute hypoxia. Follow up EKG shows a new QS wave in leads II, III, and AVF. A "quick look" echo was performed which shows evidence of CT and a very poor EF of just ~15%. The family was informed of this and Margareth Stuart consulted today and offered her support as well. Plan: Continue ASA, imdur, metoprolol to a max dose of 100mg BID for medical management, await Hospice arrangements. (6) Acute metabolic encephalopathy Impression: The patient has baseline Alzheimer's dementia, but also has hospital delirium. He is picking at things that are not present, saying things out of context or just not responding. Plan: continue nightly Zyprexa, monitor for worsening. FALL precautions. (7) Acute respiratory failure with hypoxia Impression: The patient does not normally wear supplemental oxygen at home, but has required oxygen for greater than 24 hours. This is likely due to his acute illness and generous IV fluids. The oxygen tubing has irritated his nose, so I have added Afrin spray to be given for the next 3 days. Plan: Respiratory care, Oxygen, Afrin spray x3 days, scheduled nebulizers, and incentive spirometry. May give morphine as needed for SOA, anxiety, to ease breathing. (8) Fluid overload Impression: The patient has baseline RICHARD and chronic atrial fibrillation. I have no recent echocardiogram, so his EF is unknown, but I suspect at the very least that he has pulmonary hypertension given his body habitous and his history of obstructive sleep apnea. He has been on and off wheezy today on exam. We have adjusted his IV fluids accordingly. Nursing asked to give lasix, which would be contraindicated in light of treating his rhabdomyolosis. I have ordered respiratory care to adjust the oxygen, incentive spirometer teaching and to start Xopenex nebs to avoid tachycardia given his current CT. His weight is up from 99 kg now to 126 kg, but I suspect an error. Plan: Continue gentle IV fluids, monitor respiratory status, I.S, nebs, and routine labs. Qualifiers: Hypervolemia type: transfusion-associated Qualified Code(s): E87.71 - Transfusion associated circulatory overload (9) Fall Impression: The patient's states that he has been falling more in the past few weeks and is able to get on his hands and knees, then use his arms to pull himself back to a standing position. She does not believe this is due to syncope in which he looses consciousness, rather, his legs just give out. Although he has been restless, no falls for this hospital stay. Plan: PT prior to discharge. Qualifiers: Encounter type: subsequent encounter Qualified Code(s): W19.XXXD - Unspecified fall, subsequent encounter (10) Alzheimer's dementia with behavioral disturbance Impression: The patient's , Magalis states that he was diagnosed about 10 years ago, but in the past 1 month there has been a noticeable difference in his behavior. Luckily, she believes that he can still recognize her each day. He has been acting strange while eating, when previously he was a great eater in which he holds food in his mouth for a prolonged time before swallowing. She states it is like he forgets what he was doing, which is not his character. She states that he has had more falls and his gait is shuffled lately. She denies any coughing noticed after swallowing. This condition has become exacerbated by his hospital stay. Plan: Continue to treat acute illness, Palliative care, Margareth Stuart will continue to follow. Qualifiers: Alzheimer's disease onset: early-onset Qualified Code(s): G30.0 - Alzheimer's disease with early onset; F02.81 - Dementia in other diseases classified elsewhere with behavioral disturbance (11) Obesity (BMI 30-39.9) Impression: The patient has been overweight for several years and has been falling lately. He consequently has RICHARD, but this is not officially diagnosed with a sleep study. His states he is a very loud snorer, and she has to sleep in a different room. He appears to have a very large neck circumference, although I have not measured it. Plan: Continue care, fall precautions. (12) Chronic atrial fibrillation Impression: The patient has had a-fib for greater than 10 years and is rate controlled with metoprolol, on warfarin for his atrial fib. His INR was sub-therapeutic at 1.9. His is agreeable to taking him off the anticoagulation due to the risk- benefit ratio of his falls making at risk for bleeding. Plan: Continue care, await echo, continue to titrate up metoprolol, ASA, one time dose of Lovenox, and start Imdur. (13) watermaster current use of anticoagulant Impression: The patient was on warfarin and his INR was 1.9, but his is agreeable to stopping Warfarin in light of the risk-benefit ratio. Plan: Stop Warfarin, continue ASA in the AM. (14) Essential hypertension Impression: The patient is prescribed metoprolol at home, which has been continued here. On admission B/Ps were been elevated at 136/101, now slightly improved. Plan: Continue metoprolol to titrate up, monitor B/P for hypotension with his NSTEMI. (15) Major depressive disorder Impression: The patient is prescribed sertraline at home that may be continued here. Plan: Continue med. Qualifiers: Major depression recurrence: recurrent Major depression episode severity: moderate
[2018-10-15] MEDS ORDERED: LORazepam 0.5 MG TABLET PO PRN (13:41)
[2018-10-15] MEDS: LORazepam 0.5 MG TABLET PO SCH ×2 (15:49→20:27)
[2018-10-15] MEDS: MORPHINE 2 MG/ML CARPUJECT IVP PRN (17:44)
[2018-10-16] MEDS: SODIUM CHLORIDE FLUSH 0.9% 10 ML SYRINGE IVP SCH (02:56)
[2018-10-16] MEDS: SODIUM CHLORIDE 0.9% 1,000 ML IV SCH (03:12)
[2018-10-16] MEDS: LORazepam 0.5 MG TABLET PO SCH ×4 (03:12→20:43)
[2018-10-16] MEDS: LEVALBUTEROL 1.25 MG/3 ML NEB INH SCH ×4 (05:19→18:12)
[2018-10-16] MEDS: MORPHINE 2 MG/ML CARPUJECT IVP PRN (05:55)
[2018-10-16] MEDS ORDERED: LACTULOSE 10 GM /15 ML UDC PO ONE (06:04)
[2018-10-16 06:11] LABS: BASOPHILS # (AUTO) 0.1 10^3/uL (0.0-0.1); BASOPHILS % (AUTO) 0.8 %; EOSINOPHILS # (AUTO) 0.2 10^3/uL (0.0-0.7); EOSINOPHILS % (AUTO) 3.8 %; HGB - HEMOGLOBIN 11.8 g/dL (14.0-18.0); LYMPHOCYTES # (AUTO) 0.9 10^3/uL (1.5-3.5); LYMPHOCYTES % (AUTO) 14.1 %; MEAN CORPUSCULAR HEMOGLOBIN 30.2 pg (27.0-31.0); MEAN CORPUSCULAR HGB CONC 32.2 g/dL (32.0-36.0); MEAN PLATELET VOLUME 8.5 fL (7.4-11.4); MONOCYTES # (AUTO) 0.6 10^3/uL (0.0-1.0); MONOCYTES % (AUTO) 9.1 %; NEUTROPHILS # (AUTO) 4.7 10^3/uL (1.5-6.6); NEUTROPHILS % (AUTO) 72.2 %; PLT - PLATELET COUNT 159 10^3/uL (130-450); RED BLOOD COUNT 3.92 10^6/uL (4.70-6.10); RED CELL DISTRIBUTION WIDTH 14.9 % (12.0-15.0); WHITE BLOOD COUNT 6.5 x10^3/uL (4.8-10.8)
[2018-10-16 06:30] LABS: ALBUMIN 2.9 g/dL (3.2-5.5); ALBUMIN/GLOBULIN RATIO 0.9 (1.0-2.2); CALCIUM 8.3 mg/dL (8.5-10.3); CREATININE 0.9 mg/dL (0.6-1.2); TOTAL PROTEIN 6.3 g/dL (6.7-8.2)
[2018-10-16] MEDS ORDERED: MORPHINE SOL 10 MG/0.5 ML SYRINGE PO PRN (09:12)
--- NOTE | 2018-10-16 09:16 | Discharge Plan ---
Discharge Plan for SNF / GROUP HOME - Discharge Plan And Transition Orders Disposition: 50 Hospice/Home DC/Xfer Condition: Fair Allergies and Adverse Reactions: Allergies Allergy/AdvReac Type Severity Reaction Status Date / Time adhesive Allergy Rash Verified 10/13/18 11:10 - SNF / GROUP HOME Transition Orders Admit to (Facility): Care Age stacey Hayden Under the care of (Name): Dr. Dumont Discharge Diagnosis: Rhabdomyolysis (M62.82) improved, no more IV access. NSTEMI (non-ST elevated myocardial infarction) (I21.4) new on this hospital stay, likely worsened CHF. Alzheimer disease (G30.9) chronic, ongoing. Fall (W19.XXXA) chronic, stable. Obesity (E66.9) chronic, stable. Atrial fibrillation, chronic (I48.2) chronic, stable. Anticoagulated by anticoagulation treatment (Z79.01) chronic, stable. Hypertension (I10) chronic, stable. Depression (F32.9) chronic, stable. Complicated UTI (urinary tract infection) (N39.0) Treated 4 days with IV rocephin, no further treatment. Acute metabolic encephalopathy (G93.41) improved. Acute respiratory failure with hypoxia (J96.01) improved. Fluid overload (E87.70) improved. Systolic congestive heart failure with reduced left ventricular function, NYHA class 4 (I50.20) A new EF of 15%, stable. A one time dose of lasix was given prior to discharge. Elevated LFTs (R94.5) improved, nearly resolved. End of life care (Z51.5) care to continue at SNF under the care of Hospice. Medicare Certification Statement: I certify that Post Hospital [facility] care is medically necessary on a continuing basis for any of the conditions for which she/he is receiving care during hospitalization. Notify PCP of admission and forward orders to primary provider for signature. Other Notification Orders: Call PCP immediately if patient develops dyspnea, chest pain/tightness or edema. Additional Bowel Program Orders: If no BM after 2 days, nurse may give M.O.M. 30ml PO PRN and/or ducolax Supp 1 ID and/or MESSI 250mg P.O., and/or senna 1-2 tabs PO. On day 3 nurse may give repeat above order until residents constipation is resolved. Treatments & Other Orders: Hospice care Oxygen Orders: 2-4L per nasal cannula to keep oxygen greater than 90%, or for comfort. Lab Tests or X-ray Orders: not indicated Medication Orders: PLEASE REFER TO THE DISCHARGE MEDICATION LIST. - Medications New Prescriptions: LORazepam [Ativan] 0.5 mg PO Q6H #30 tablet Morphine Sulfate [Morphine Sulf Oral (Roxanol)] 5 mg PO Q1H PRN #30 ml PRN Reason: Pain/Dyspnea Oxymetazoline HCl [Afrin] 15 ml NS BID #1 mist - Diet Type: Geriatric Texture: Regular Liquids: Thin May have monthly special meal: Yes
--- NOTE | 2018-10-16 09:26 | DISCHARGE SUMMARY ---
Discharge Summary Admit Date: 10/13/18 Discharge Date: 10/17/18 Discharging Provider: NIKOLE Sung Primary Care Provider: Dr. Dumont Code Status: Do Not Attempt Resuscitation Condition at Discharge: Fair Discharge Disposition: 50 Hospice/Home DC/Xfer Discharge Facility Name: Care Age - DIAGNOSES Admission Diagnoses: Rhabdomyolysis NSTEMI (non-ST elevated myocardial infarction) Fall Alzheimer's dementia with behavioral disturbance Obesity (BMI 30-39.9) Chronic atrial fibrillation [facility]DC current use of anticoagulant Essential hypertension Major depressive disorder Discharge Diagnoses with Status of Each Condition: Discharge Diagnosis: Rhabdomyolysis (M62.82) improved, no more IV access. NSTEMI (non-ST elevated myocardial infarction) (I21.4) new on this hospital stay, likely worsened CHF. Systolic congestive heart failure with reduced left ventricular function, NYHA class 4 (I50.20) A new EF of 15%, stable. A one time dose of lasix was given prior to discharge. Complicated UTI (urinary tract infection) (N39.0) Treated 4 days with IV rocephin, no further treatment. Alzheimer disease (G30.9) chronic, ongoing. Fall (W19.XXXA) chronic, stable. Obesity (E66.9) chronic, stable. Atrial fibrillation, chronic (I48.2) chronic, stable. Anticoagulated by anticoagulation treatment (Z79.01) chronic, stable. Hypertension (I10) chronic, stable. Depression (F32.9) chronic, stable. Acute metabolic encephalopathy (G93.41) improved. Acute respiratory failure with hypoxia (J96.01) improved. Fluid overload (E87.70) improved. Elevated LFTs (R94.5) improved, nearly resolved. End of life care (Z51.5) care to continue at SNF under the care of Hospice. - HPI History of Present Illness: Edmar Elliott is a 78-year old male with a past medical history of Alzheimer's dementia, falls, atrial fibrillation on coumadin, CHF, obesity, RICHARD and depression. He is very confused on admission, so his , Magalis answered all questions asked for this H & P document. He sleeps in his own room at home and when Magalis checked on him this morning, she called to him and he replied, "I am just fine in here". Within one hour after that, she went into his room, and found him wedged between the wall and toilet in the bathroom. He was not able to be dislodged even after Magalis had a few male neighbors come to assist. EMS came and the patient was estimated to have been on the floor any where from 8-10 hours. After arriving in the ED imaging of his head and chest were normal, an I VC measurement showed a 1.5L deficit. Labs showed an elevated troponin of 9.48[place] [address], a BNP of 472, an elevated lactic acid of 2.3, an INR of 1.9, an elevated WBC count of 13.6, a low H/H of 13.4/40.4, elevated LFTs, and no other lab abnormalities. On exam, he was agitated, could not follow commands, was disorientated, and was not able to elaborate on his history. His Magalis states that she does not believe he has been sick lately, has not had a new cough, rashes, or other complaints. She does admit that he has been more confused lately, has had more falls, and has had more of a sudden decline. He will be admitted to inpatient. - CONSULTS | PROCEDURES Consultations: Palliative care, Hospice care - HOSPITAL COURSE Hospital Course: The patient had an improvement in his labs showing that his original rhabdomylosis was nearly resolved. He became fluid overloaded, so nebulizers were added, his IV fluids were capped off and a one time dose of lasix was given for comfort since his scrotum had even become swollen. He had a complicated UTI of which he received Rocephin IV for the duration of his stay. He continued to smile, sleep ok and eat throughout his stay. Margareth Stuart from Palliative care consulted and discussed with the family end of life care, and goals of care. It was determined that he had lost function of his heart and had an EF of just 15% since suffering a NSTEMI while hospitalized that was likely exacerbated by his fall. He was medically stable and transported to [facility] under the care of Hospice. Dr. Dumont graciously visited the hospital prior to his discharge. His suárez was left in place for comfort. - ALLERGIES Allergies/Adverse Reactions: Allergies Allergy/AdvReac Type Severity Reaction Status Date / Time adhesive Allergy Rash Verified 10/13/18 11:10 - MEDICATIONS Home Medications: Ambulatory Orders Medication Instructions Recorded Confirmed Aspirin [Mir] 325 mg PO DAILYWM #30 tablet 10/16/18 Isosorbide Mononitrate ER [Imdur] 30 mg PO DAILY #30 tablet 10/16/18 LORazepam [Ativan] 0.5 mg PO Q6H #30 tablet 10/16/18 Levalbuterol [Xopenex] 1.25 mg INH Q4H PRN #120 neb 10/16/18 Levalbuterol [Xopenex] 1.25 mg INH Q6H #120 neb 10/16/18 Metoprolol Succinate [Toprol Xl] 75 mg PO BIDWM #90 tablet 10/16/18 Morphine Sulfate [Morphine Sulf 5 mg PO Q1H PRN #30 ml 10/16/18 Oral (Roxanol)] Oxymetazoline HCl [Afrin] 15 ml NS BID #1 mist 10/16/18 Senna [Senokot] 8.6 - 17.2 mg PO DAILY #60 tablet 10/16/18 - PHYSICAL EXAM AT DISCHARGE General Appearance: positive: No acute distress, Alert Eyes Bilateral: positive: PERRL ENT: positive: Pharynx nml, Dry mucous membranes Neck: positive: Thyroid nml, No JVD, Trachea midline Respiratory: positive: Chest non-tender, Wheezes, Rhonchi Cardiovascular: positive: No gallop, Irregularly irregular, Systolic murmur, Decreased pulse(s), Other (enlarged scrotum from edema) Peripheral Pulses: positive: 1+ Abdomen: positive: Non-tender, Nml bowel sounds, Hepatomegaly, Other (firm) Back: positive: Nml inspection Skin: positive: Color nml, No rash, Warm, Dry Extremities: positive: Non-tender, Pedal edema, Joint swelling, Other (chronic discoloration to BLEs.) Neurologic/Psychiatric: positive: Disoriented to place, Disoriented to time, Weakness, Sensory loss, Slurred/abnml speech, Depressed mood/affect, Other (baseline advaned dementia) Reflexes: Bicep (R): 3+, Bicep (L): 3+ - LABS Result Diagrams: 10/16/18 05:45 10/17/18 05:46 - DIAGNOSTIC IMAGING Diagnostic Imaging Results: Final report reviewed Diagnostic Imaging Results Comments: EXAM: CT HEAD EXAM DATE: 10/13/2018 11:36 AM IMPRESSION: No acute intracranial abnormality. EXAM: CHEST RADIOGRAPHY EXAM DATE: 10/13/2018 01:43 PM IMPRESSION: Limited evaluation with cardiomegaly. - SEPSIS Current Stage of Sepsis: Ruled out - FOLLOW UP Follow Up: N/A - TIME SPENT Time Spent in Discharge (Minutes): 60
[2018-10-16] MEDS: METOPROLOL SUCCINATE 50 MG TABLET PO SCH ×2 (09:45→17:05)
[2018-10-16] MEDS: cefTRIAXone 2 GM in SODIUM CHLORIDE 0.9% MINIBAG 100 ML IV SCH (09:49)
[2018-10-16] MEDS: POLYETHYLENE GLYCOL 3350 17 GM PACKET PO SCH (09:50)
[2018-10-16] MEDS: SENNA 8.6 MG TABLET PO SCH (09:51)
[2018-10-16] MEDS: ISOSORBIDE MONONITRATE ER 30 MG TABLET PO SCH (09:53)
[2018-10-16] MEDS: ASPIRIN 325 MG TABLET PO SCH (09:53)
[2018-10-16] MEDS: OLANZapine ODT 5 MG TABLET TL SCH (09:53)
[2018-10-16] MEDS: OXYMETAZOLINE NASAL SPRAY NAS SCH ×2 (10:50→20:44)
--- NOTE | 2018-10-16 14:27 | PROVIDER PROGRESS NOTE ---
Subjective - Prog Note Date Prog Note Date: 10/16/18 Prog Note Time: 12:00 - Subjective Pt reports feeling: Improved Subjective: Edmar has no complaints except for buttock soreness from being in bed too much. His , Magalis is at the bedside. He denies chest pain, problems breathing despite his wheezing and congestion. His was given a medical update. Current Medications - Current Medications Current Medications: Active Medications: Acetaminophen (Tylenol) 650 mg PO Q4HR PRN Aspirin (Mir) 325 [facility] DAILYWM [facility] Ceftriaxone Sodium 2 gm/ (Sodium Chloride) 100 mls @ 200 mls/hr IV DAILY LIANET Isosorbide Mononitrate (Imdur) 30 mg PO DAILY LIANET Levalbuterol HCl (Xopenex) 1.25 mg INH Q4H PRN Levalbuterol HCl (Xopenex) 1.25 mg INH Q6H LIANET Lidocaine HCl (Xylocaine Uro-Jet 2%) 2.5 ml UR Q6H PRN Lorazepam (Ativan) 0.5 mg PO Q6H LIANET Metoprolol Succinate (Toprol Xl) 75 mg PO BIDWM LIANET Morphine Sulfate (Morphine (Carpuject)) 2 mg IVP Q2HR PRN Morphine Sulfate (Roxanol) 5 mg PO Q2HR PRN Olanzapine (Zyprexa Odt) 5 mg TL DAILY LIANET Oxymetazoline HCl (Afrin) 2 sprays LOIS BID LIANET Polyethylene Glycol (Miralax) 17 gm PO DAILY LIANET Senna (Senokot) 8.6 - 17.2 mg PO DAILY LIANET Objective - Vital Signs/Intake & Output Reviewed Vital Signs: Yes Vital Signs: Vital Signs x48h Temp Pulse Pulse Resp BP Pulse Ox 10/16/18 11:56 60 20 10/16/18 08:00 36.2 C L 63 16 131/85 H 98 Intake & Output: Intake & Output 10/13/18 10/14/18 10/15/18 10/16/18 23:59 23:59 23:59 23:59 Intake Total 2112.833 4658.333 2748.333 2340 Output Total 690 1650 2075 600 Balance 4964.649 1158.333 023.570 3482 - Objective General Appearance: positive: No acute distress, Alert, Anxious Eyes Bilateral: positive: PERRL, No lid inflammation Eyes: OU Conjunctivae pale ENT: positive: Pharynx nml, Dry mucous membranes Neck: positive: Thyroid nml, No JVD, Trachea midline Respiratory: positive: Chest non-tender, Wheezes, Rhonchi Cardiovascular: positive: No gallop, Irregularly irregular, Systolic murmur, Decreased pulse(s) Peripheral Pulses: 1+ Radial (R), 1+ Radial (L) Abdomen: positive: Non-tender, Nml bowel sounds, Hepatomegaly, Other (firm, obese) Back: positive: Nml inspection Skin: positive: No rash, Warm, Dry, Pallor Extremities: positive: Non-tender, Pedal edema, Joint swelling, Other (BLEs disc oloration chronic) Neurologic/Psychiatric: positive: Disoriented to place, Disoriented to time, Weakness, Sensory loss, Slurred/abnml speech, Depressed mood/affect, Other (adv anced baseline dementia) Reflexes: Bicep (R): 3+, Bicep (L): 3+ - Lab Results Fish Bones: 10/16/18 05:45 10/17/18 05:46 Other Labs: Lab Results x24hrs 10/16/18 10/16/18 10/16/18 Range/Units 05:45 05:45 05:45 WBC 6.5 (4.8-10.8) x10^3/uL RBC 3.92 L (4.70-6.10) 10^6/uL Hgb 11.8 L (14.0-18.0) g/dL Hct 36.8 L (42.0-52.0) % MCV 94.0 (80.0-94.0) fL MCH 30.2 (27.0-31.0) pg MCHC 32.2 (32.0-36.0) g/dL RDW 14.9 (12.0-15.0) % Plt Count 159 (130-450) 10^3/uL MPV 8.5 (7.4-11.4) fL Neut # (Auto) 4.7 (1.5-6.6) 10^3/uL Lymph # (Auto) 0.9 L (1.5-3.5) 10^3/uL [place] # (Auto) 0.6 (0.0-1.0) 10^3/uL Eos # (Auto) 0.2 (0.0-0.7) 10^3/uL Baso # (Auto) 0.1 (0.0-0.1) 10^3/uL Absolute Nucleated RBC 0.00 x10^3/uL Nucleated RBC % 0.1 /100WBC Sodium 140 (135-145) mmol/L Potassium 4.3 (3.5-5.0) mmol/L Chloride 109 (101-111) mmol/L Carbon Dioxide 26 (21-32) mmol/L Anion Gap 5.0 L (6-13) BUN 13 (6-20) mg/dL Creatinine 0.9 (0.6-1.2) mg/dL Estimated GFR (MDRD) 81 L (>89) Glucose 137 H (70-100) mg/dL Calcium 8.3 L (8.5-10.3) mg/dL Total Bilirubin 1.0 (0.2-1.0) mg/dL AST 397 H (10-42) IU/L ALT 149 H (10-60) IU/L Alkaline Phosphatase 44 (42-121) IU/L Total Creatine Kinase 8646 H* (22-269) IU/L Total Protein 6.3 L (6.7-8.2) g/dL Albumin 2.9 L (3.2-5.5) g/dL Globulin 3.4 (2.1-4.2) g/dL Albumin/Globulin Ratio 0.9 L (1.0-2.2) ABX Reporting Has patient been on IV antibiotics over the past 48 hours?: Yes Sepsis Event Note (H) - Evaluation Current Stage of Sepsis: Ruled out Assessment/Plan - Problem List (1) Rhabdomyolysis Impression: The patient had an elevated total creatine kinase of 16,820, which matches the story from the as he is suspected as lying on the floor for 8-10 hours overnight. Today, this is much improved with a CK level of ~8000. Plan: Cap IV today. Routine CK labs, routine labs. Qualifiers: Rhabdomyolysis type: traumatic Encounter type: initial encounter Qualified Code(s): T79.6XXA - Traumatic ischemia of muscle, initial encounter (2) Systolic congestive heart failure with reduced left ventricular function, NYHA class 4 Impression: There is noted to be severe global hypokinesis of the left ventricle contractility and an estimated reduced EF of only ~15%. There is evidence of ischemia in the anterior and septal wall. There is a posterior wall thinned and akinetic zone, nearly aneursmal, consistent with an old inferior DC (age indeterminate). The RV is found to be severely enlarged with evidence RVH , indicating long standing RV overload. No Doppler could be done, since this was a "quick-look" bedside Echo done by Dr Ibarra. Plan: Continue medical management with Imdur, beta blockers, ASA and REID/ARB if indicated. Await placement with Hospice care. (3) Elevated LFTs Impression: The patient has had very elevated AST and ALT likely a consequence of the acute heart failure, volume overload, acute DC leading to poor liver perfusion. These labs are much improved today and are expected to improve since stopping the IV fluids. Plan: Continue daily labs until Hospice care. (4) Complicated UTI (urinary tract infection) Impression: A urine sample in the ED showed + nitrites (may indicate e. coli) and shows an acute infection. The patient had an elevated WBC count of 13.6 and profound weakness leading up to this event. A suárez in now in place. He has been started on Rocephin IV, which continues daily and his WBC count remains normal. In the event that his IV comes out, this treatment will stop. Plan: Continue daily Rocephin, await final cultures. (5) NSTEMI (non-ST elevated myocardial infarction) Impression: Troponin reached a peak of 21, and this morning was trending down at ~13. Given this event, he cannot be started on steroids for his acute hypoxia. Follow up EKG shows a new QS wave in leads II, III, and AVF. A "quick look" echo was performed which shows evidence of DC and a very poor EF of just ~15%. The family was informed of this and Margareth Stuart has been following to offer her support as well. Plan: Continue ASA, imdur, metoprolol to a max dose of 100mg BID for medical management, await Hospice arrangements. (6) Acute metabolic encephalopathy Impression: The patient has baseline Alzheimer's dementia, but also has hospital delirium. He is picking at things that are not present, saying things out of context or just not responding. Plan: continue nightly Zyprexa, scheduled lorazepam, monitor for worsening. FALL precautions. (7) Acute respiratory failure with hypoxia Impression: The patient does not normally wear supplemental oxygen at home, but has required oxygen for greater than 24 hours. This is likely due to his acute illness and generous IV fluids. The oxygen tubing has irritated his nose, so I have added Afrin spray to be given for the next 3 days. Plan: Respiratory care, Oxygen, Afrin spray x3 days, scheduled nebulizers. May give morphine as needed for SOA, anxiety, to ease breathing. (8) Fluid overload Impression: The patient has baseline RICHARD and chronic atrial fibrillation. I have no recent echocardiogram, so his EF is unknown, but I suspect at the very least that he has pulmonary hypertension given his body habitous and his history of obstructive sleep apnea. He has been on and off wheezy today on exam. We have adjusted his IV fluids accordingly. Nursing asked to give lasix, which would be contraindicated in light of treating his rhabdomyolosis. I have ordered respi ratory care to adjust the oxygen, incentive spirometer teaching and to start Xopenex nebs to avoid tachycardia given his current DC. His weight has leveled out after stopping his IV fluids and his urine has become less dark. Plan: Stop IV fluids, monitor respiratory status, nebs, and routine labs. Qualifiers: Hypervolemia type: transfusion-associated Qualified Code(s): E87.71 - Transfusion associated circulatory overload (9) Fall Impression: The patient's states that he has been falling more in the past few weeks and is able to get on his hands and knees, then use his arms to pull himself back to a standing position. She does not believe this is due to syncope in which he looses consciousness, rather, his legs just give out. Although he has been restless, no falls for this hospital stay. Today, the patient's activity tolerance is very poor and is much less agitated today since starting the scheduled lorazepam. Plan: Continue with comfort focused cares. Qualifiers: Encounter type: subsequent encounter Qualified Code(s): W19.XXXD - Unspecified fall, subsequent encounter (10) Alzheimer's dementia with behavioral disturbance Impression: The patient's , Magalis states that he was diagnosed about 10 years ago, but in the past 1 month there has been a noticeable difference in his behavior. Luckily, she believes that he can still recognize her each day. He has been acting strange while eating, when previously he was a great eater in which he holds food in his mouth for a prolonged time before swallowing. She states it is like he forgets what he was doing, which is not his character. She states that he has had more falls and his gait is shuffled lately. She denies any coughing noticed after swallowing. This condition has become exacerbated by his hospital stay. Plan: Continue to provide comfort focused cares, discharge to SNF with Hospice. Qualifiers: Alzheimer's disease onset: early-onset Qualified Code(s): G30.0 - Alzheimer's disease with early onset; F02.81 - Dementia in other diseases classified elsewhere with behavioral disturbance (11) Obesity (BMI 30-39.9) Impression: The patient has been overweight for several years and has been falling lately. He consequently has RICHARD, but this is not officially diagnosed with a sleep study. His states he is a very loud snorer, and she has to sleep in a different room. He appears to have a very large neck circumference, although I have not measured it. Plan: Continue care, fall precautions. (12) Chronic atrial fibrillation Impression: The patient has had a-fib for greater than 10 years and is rate controlled with metoprolol, on warfarin for his atrial fib. His INR was sub-therapeutic at 1.9. His is agreeable to taking him off the anticoagulation due to the risk- benefit ratio of his falls making at risk for bleeding. Plan: Continue care, continue to titrate up metoprolol, ASA, Imdur. (13) detention current use of anticoagulant Impression: The patient was on warfarin and his INR was 1.9, but his is agreeable to stopping Warfarin in light of the risk-benefit ratio. Plan: Stop Warfarin, continue ASA . (14) Essential hypertension Impression: The patient is prescribed metoprolol at home, which has been continued here. On admission B/Ps were been elevated at 136/101, now slightly improved. Plan: Continue metoprolol to titrate up, monitor B/P for hypotension with his NSTEMI. (15) Major depressive disorder Impression: The patient is prescribed sertraline at home that may be continued here. Plan: Continue med. Qualifiers: Major depression recurrence: recurrent Major depression episode severity: moderate (16) End of life care Impression: Hospice has accepted the patient to be admitted to [facility] and Hospice care to begin at that time. Dr. Dumont came to the hospital and is grateful for the referral. The family is also appreciative. We have scheduled the oral lorazepam, added liquid morphine and the patient has much less agitation. Plan: continue comfort focused cares, discharge to [facility] tomorrow.
--- NOTE | 2018-10-16 14:34 | ADVANCE CARE PLANNING NOTE ---
Advance Care Planning - Date/Time Date: 10/13/18 Time: 17:00 - Purpose of encounter Text: To establish plan of care and to talk more about prognosis after this illness. - Parties in attendance Parties in attendance: The patient- Edmar Elliott, his /POA-Magalis, and myself-NIKOLE Sung - Decisional capacity Decisional capacity of: The patient has had Alzheimer's dementia for the past 10 years that has become worse in the last 1 month. His , Magalis is his POA and has his best interest in mind. - Subjective/Patient's story Subjective/Patient's story: The patient's , Magalis admits that her has had Alzheimer's dementia for the past ~10 years. He has become more forgetful, more weak, less verbal and has had more difficulty with his sleep schedule more so in the past 1 month. 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 He was born in [facility], met his of 53 years, and had 2 children. He still lives at home with his , Magalis but has been home bound lately since it is too difficult for Magalis to move him physically. This has not allowed for any further medical appointment and he certainly has not been running errands with her. He has a POLST on file that states DNR. Magalis is agreeable to a Palliative consult as she has worked with Margareth Stuart in the past for another family member. - Objective/Medical story Objective/Medical Story: Edmar Elliott is a 78-year old male with a past medical history of Alzheimer's dementia, falls, atrial fibrillation on coumadin, CHF, obesity, RICHARD and depression. He is very confused on admission, so his , Magalis answered all questions asked for this H & P document. He sleeps in his own room at home and when Magalis checked on him this morning, she called to him and he replied, "I am just fine in here". Within one hour after that, she went into his room, and found him wedged between the wall and toilet in the bathroom. He was not able to be dislodged even after Magalis had a few male neighbors come to assist. EMS came and the patient was estimated to have been on the floor any where from 8-10 hours. After arriving in the ED imaging of his head and chest were normal, an IVC measurement showed a 1.5L deficit. Labs showed an elevated troponin of 9.48[place] [address], a BNP of 472, an elevated lactic acid of 2.3, an INR of 1.9, an elevated WBC count of 13.6, a low H/H of 13.4/40.4, elevated LFTs, and no other lab abnormalities. On exam, he was agitated, could not follow commands, was disorientated, and was not able to elaborate on his history. His Magalis states that she does not believe he has been sick lately, has not had a new cough, rashes, or other complaints. She does admit that he has been more confused lately, has had more falls, and has had more of a sudden decline. After discussion with Magalis, a Palliative care consult is in order and we will continue to treat this acute illness and hopefully answer some questions about upcoming prognosis of both his NSTEMI and director of community [facility] kidney function after treating these conditions. - Goals of Care Goals of care determinations: Factors that would change the course of treatment or guide us in placement include: Worsening infection Kidney failure Profound heart failure Increased combative behaviors indicating increased suffering A fall - Plan Plan: Determine prognosis Focus on comfort Limit invasive procedures and testing Palliative care with the possibility of Hospice care after this hospital stay Possible halfway placement - Code Status Code Status: Do Not Attempt Resuscitation - Time Spent on Advance Care Planning Time spent on advance care plannin
[2018-10-17] MEDS: LEVALBUTEROL 1.25 MG/3 ML NEB INH SCH ×2 (00:41→08:00)
[2018-10-17] MEDS ORDERED: SODIUM CHLORIDE FLUSH 0.9% 10 ML SYRINGE ONE (00:47)
[2018-10-17] MEDS: LORazepam 0.5 MG TABLET PO SCH ×3 (01:07→13:48)
[2018-10-17 06:26] LABS: ALBUMIN 2.9 g/dL (3.2-5.5); ALBUMIN/GLOBULIN RATIO 0.9 (1.0-2.2); BILIRUBIN,TOTAL 0.7 mg/dL (0.2-1.0); CALCIUM 8.5 mg/dL (8.5-10.3); CREATININE 0.9 mg/dL (0.6-1.2)
[2018-10-17] MEDS ORDERED: FUROSEMIDE 40 MG TABLET PO SCH (08:37)
[2018-10-17] MEDS: POLYETHYLENE GLYCOL 3350 17 GM PACKET PO SCH (10:08)
[2018-10-17] MEDS: SENNA 8.6 MG TABLET PO SCH (10:09)
[2018-10-17] MEDS: METOPROLOL SUCCINATE 50 MG TABLET PO SCH (10:09)
[2018-10-17] MEDS: ISOSORBIDE MONONITRATE ER 30 MG TABLET PO SCH (10:09)
[2018-10-17] MEDS: OXYMETAZOLINE NASAL SPRAY NAS SCH (10:10)
[2018-10-17] MEDS: OLANZapine ODT 5 MG TABLET TL SCH (10:10)
[2018-10-17] MEDS: ASPIRIN 325 MG TABLET PO SCH (10:10)
[2018-10-17 10:23] VITALS: BP 121/68
== END 2018-10-17 14:36 | disposition hospice, home (50) | DRG 280 ==
LOC: EDUNIT# → ED 10:57 → MS2 13:46
PROVIDERS: ADMIT Nurse Practitioner; ATTEND Nurse Practitioner
DX: I21.4 Non-ST elevation (NSTEMI) myocardial infarction (principal); G93.41 Metabolic encephalopathy; W19.XXXA Unspecified fall, initial encounter; F03.90 Unspecified dementia, unspecified severity, without behavioral disturbance, psychotic disturbance, mood disturbance, and anxiety; I11.0 Hypertensive heart disease with heart failure; I50.9 Heart failure, unspecified; Z96.649 Presence of unspecified artificial hip joint; J96.01 Acute respiratory failure with hypoxia; I13.0 Hypertensive heart and chronic kidney disease with heart failure and stage 1 through stage 4 chronic kidney disease, or unspecified chronic kidney disease; I50.22 Chronic systolic (congestive) heart failure; N39.0 Urinary tract infection, site not specified; F02.81 Dementia in other diseases classified elsewhere, unspecified severity, with behavioral disturbance; F05 Delirium due to known physiological condition; Z68.41 Body mass index [BMI] 40.0-44.9, adult; F33.1 Major depressive disorder, recurrent, moderate; I48.92 Unspecified atrial flutter; C79.9 Secondary malignant neoplasm of unspecified site; T79.6XXA Traumatic ischemia of muscle, initial encounter; Z66 Do not resuscitate; N18.3 Chronic kidney disease, stage 3 (moderate); G30.0 Alzheimer's disease with early onset; E66.9 Obesity, unspecified; I48.2 Chronic atrial fibrillation; Z79.02 Long term (current) use of antithrombotics/antiplatelets; G47.33 Obstructive sleep apnea (adult) (pediatric); Z51.5 Encounter for palliative care; Z91.048 Other nonmedicinal substance allergy status; Z79.82 Long term (current) use of aspirin; I73.9 Peripheral vascular disease, unspecified; R01.1 Cardiac murmur, unspecified; J45.909 Unspecified asthma, uncomplicated; G62.9 Polyneuropathy, unspecified; K21.9 Gastro-esophageal reflux disease without esophagitis; N40.1 Benign prostatic hyperplasia with lower urinary tract symptoms; C61 Malignant neoplasm of prostate; R35.0 Frequency of micturition; R35.1 Nocturia; H54.7 Unspecified visual loss; H91.90 Unspecified hearing loss, unspecified ear; M19.90 Unspecified osteoarthritis, unspecified site; Z91.81 History of falling; Z74.01 Bed confinement status; R79.89 Other specified abnormal findings of blood chemistry
CPT/HCPCS: 36415; 70450; 71045; 80048; 80053; 80076; 81001; 81003; 82550; 82553; 82803; 83605; 83690; 83880; 84484; 85025; 85610; 87040; 87086; 93005; 94640; 99223; 99284

== ENCOUNTER 2018-10-17 14:27 | Outpatient (CLI) | payer MEDICARE, OTHER | END 2018-10-17 14:28 | LOC: EMS 14:27 | PROVIDERS: ATTEND Surgery | DX: M62.82 Rhabdomyolysis (principal) | CPT/HCPCS: A0425; A0428 ==